=== PATIENT | male | born 1940 | race African-American/Black ===

== ENCOUNTER 2020-03-24 11:30 | Inpatient (IN) | payer MEDICARE, MEDICAID ==
[~2020-03-24] VITALS: Ht 175.3 cm; Wt 67.1 kg
--- NOTE | 2020-03-24 11:38 | NUR ---
ED Nurse Note: PT brought in by ambulance from [facility] for fracture to left hip. x ray is from 03/23/20. per report, pt had a fall some time last week.
--- NOTE | 2020-03-24 12:06 | NUR ---
ED Nurse Note: blood sample collected and sent to lab
[2020-03-24 12:42] LABS: BASOPHILS % (AUTO) 1.5 % (0.0-2.0); EOSINOPHILS % (AUTO) 1.7 % (0.0-3.0); HEMATOCRIT 28.1 % (42.0-52.0); HEMOGLOBIN 9.2 G/DL (14.2-18.0); MEAN CORPUSCULAR VOLUME 82 FL (80-99); MONOCYTES % (AUTO) 13.1 % (1.0-10.0); NEUTROPHILS % (AUTO) 59.7 % (45.0-75.0); PLATELET COUNT 305 K/UL (150-450); RED BLOOD COUNT 3.43 M/UL (4.70-6.10); RED CELL DISTRIBUTION WIDTH 14.1 % (11.6-14.8); WHITE BLOOD COUNT 7.2 K/UL (4.8-10.8)
--- NOTE | 2020-03-24 12:45 | NUR ---
ED Nurse Note: pt taken radiology via gurney accompanied by chemistry technical officer.
--- NOTE | 2020-03-24 12:58 | NUR ---
ED Nurse Note: pt back from x ray
[2020-03-24 13:06] LABS: CALCIUM 8.4 MG/DL (8.5-10.1); CREATININE 1.7 MG/DL (0.55-1.30); POTASSIUM 4.3 MMOL/L (3.5-5.1)
[2020-03-24 13:10] LABS: ALBUMIN 2.4 G/DL (3.4-5.0); ALBUMIN/GLOBULIN RATIO 0.5 (1.0-2.7); BILIRUBIN,TOTAL 0.5 MG/DL (0.2-1.0)
--- NOTE | 2020-03-24 13:56 | Emergency Room Report ---
History of Present Illness General Chief Complaint: Lower Extremity Injury Source: Medical Record, EMS [facility] Present Illness HPI This patient is brought in by EMS from a [facility] facility. The patient had a fall last week and has had pain in his left hip. He underwent an x-ray at the [facility] facility and there are findings concerning for left hip fracture. Patient has severe dementia and is unable to give any type of history. History is obtained from EMS and the patient's medical record. No other history of present illness available. [facility] Allergies: Coded Allergies: No Known Allergies (Unverified , 03/24/20) COVID-19 Screening Contact w/high risk pt: Yes Experienced COVID-19 symptoms?: No COVID-19 Testing performed PRICING SPECIALIST: Yes COVID-19 Screening: Negative COVID-19 COVID-19 Testing Source: 03/10/20 [facility] Patient History Past Medical History: see triage record, old chart reviewed, HTN, psych hx - schizophrenia, renal disease, other - Parkinson's, Chron's Social History: Denies: smoking, alcohol use, drug use Reviewed Nursing Documentation: PMH: Agreed; PSxH: Agreed ([facility]) Nursing Documentation-PMH Hx Hypertension: Yes Hx Gastrointestinal Problems: Yes - BPH, gastritits, Crohn's History Of Psychiatric Problem: Yes - anxiety, schizophrenia ([facility]) Review of Systems All Other Systems: negative except mentioned in HPI ([facility]) Physical Exam Vital Signs Date Time Temp Pulse Resp B/P (MAP) Pulse Ox O2 Delivery O2 Flow Rate FiO2 03/24/20 11:31 98.4 56 18 108/66 (80) 98 Room Air Sp02 EP Interpretation: reviewed, normal General Appearance: no apparent distress, alert, GCS 15, non-toxic Head: normocephalic, atraumatic Eyes: bilateral eye normal inspection ENT: hearing grossly normal, no angioedema, normal voice Neck: normal inspection, full range of motion Respiratory: chest non-tender, lungs clear, normal breath sounds, no respiratory distress, no retraction, no accessory muscle use, speaking full sentences Cardiovascular #1: regular rate, rhythm, no edema Gastrointestinal: non tender, soft, non-distended, no guarding, no rebound Rectal: deferred Musculoskeletal: back normal, normal range of motion, tender - L. hip +pain w/ ROM Neurologic: alert, responsive, speech normal, grossly normal, other - limited secondary to ability to perform exam Psychiatric: mood/affect normal Skin: no rash, normal color, other - See RN skin exam (Arlene Simpson DO) Medical Decision Making Diagnostic Impression: Primary Impression: Hip fracture, left Additional Impression: Fall ER Course This patient is found to have a left hip fracture. It appears nondisplaced. Preop labs, EKG and chest x-ray was obtained in anticipation of surgical repair. Patient remained stable in the emergency department was admitted to the medical surgical floor for further evaluation and treatment by internal medicine and orthopedic surgery. This patient was evaluated in the context of the global COVID-19 pandemic, which necessitated consideration that the patient might be at risk for infection with the [id number]-5 virus that causes COVID-19. Institutional protocols and algorithms that pertain to the evaluation of patients at risk for COVID-19 and the state of rapid change based on information released by multiple regulatory bodies including the CDC and federal and state organizations. These policies and algorithms were followed during the patient's care in the ED. Laboratory Tests Test 03/24/20 12:05 White Blood Count 7.2 K/UL (4.8-10.8) Red Blood Count 3.43 M/UL (4.70-6.10) L Hemoglobin 9.2 G/DL (14.2-18.0) L Hematocrit 28.1 % (42.0-52.0) L Mean Corpuscular Volume 82 FL (80-99) Mean Corpuscular Hemoglobin 26.8 PG (27.0-31.0) L Mean Corpuscular Hemoglobin Concent 32.8 G/DL (32.0-36.0) Red Cell Distribution Width 14.1 % (11.6-14.8) Platelet Count 305 K/UL (150-450) Mean Platelet Volume 6.9 FL (6.5-10.1) Neutrophils (%) (Auto) 59.7 % (45.0-75.0) Lymphocytes (%) (Auto) 24.0 % (20.0-45.0) Monocytes (%) (Auto) 13.1 % (1.0-10.0) H Eosinophils (%) (Auto) 1.7 % (0.0-3.0) Basophils (%) (Auto) 1.5 % (0.0-2.0) Prothrombin Time 11.5 SEC (9.30-11.50) Prothrombin Time INR 1.0 (0.9-1.1) Activated Partial Thromboplast Time 29 SEC (23-33) Sodium Level 137 MMOL/L (136-145) Potassium Level 4.3 MMOL/L (3.5-5.1) Chloride Level 104 MMOL/L (98-107) Carbon Dioxide Level 20 MMOL/L (21-32) L Anion Gap 13 mmol/L (5-15) Blood Urea Nitrogen 38 mg/dL (7-18) H Creatinine 1.7 MG/DL (0.55-1.30) H Estimated Glomerular Filtration Rate 39.0 mL/min (>60) Glucose Level 100 MG/DL (74-106) Calcium Level 8.4 MG/DL (8.5-10.1) L Total Bilirubin 0.5 MG/DL (0.2-1.0) Aspartate Amino Transferase (AST) 23 U/L (15-37) Alanine Aminotransferase (ALT) 7 U/L (12-78) L Alkaline Phosphatase 59 U/L (46-116) Total Protein 7.1 G/DL (6.4-8.2) Albumin 2.4 G/DL (3.4-5.0) L Globulin 4.7 g/dL Albumin/Globulin Ratio 0.5 (1.0-2.7) L (Arlene Simpson DO) ER Course Patient was endorsed me by Dr. Dejesus had injury to the hip and recent fracture. See Dr. Dejesus's note for full details. X-ray imaging showed left h ip fracture. Patient had been admitted to Dr. Dugan. Dr. Yoan Cueto was contacted for orthopedic consult after discussion with Dr. Dugan. Laboratory Tests Test 03/24/20 12:05 03/25/20 04:45 White Blood Count 7.2 K/UL (4.8-10.8) Red Blood Count 3.43 M/UL (4.70-6.10) L Hemoglobin 9.2 G/DL (14.2-18.0) L Hematocrit 28.1 % (42.0-52.0) L Mean Corpuscular Volume 82 FL (80-99) Mean Corpuscular Hemoglobin 26.8 PG (27.0-31.0) L Mean Corpuscular Hemoglobin Concent 32.8 G/DL (32.0-36.0) Red Cell Distribution Width 14.1 % (11.6-14.8) Platelet Count 305 K/UL (150-450) Mean Platelet Volume 6.9 FL (6.5-10.1) Neutrophils (%) (Auto) 59.7 % (45.0-75.0) Lymphocytes (%) (Auto) 24.0 % (20.0-45.0) Monocytes (%) (Auto) 13.1 % (1.0-10.0) H Eosinophils (%) (Auto) 1.7 % (0.0-3.0) Basophils (%) (Auto) 1.5 % (0.0-2.0) Prothrombin Time 11.5 SEC (9.30-11.50) Prothrombin Time INR 1.0 (0.9-1.1) Activated Partial Thromboplast Time 29 SEC (23-33) Sodium Level 137 MMOL/L (136-145) Potassium Level 4.3 MMOL/L (3.5-5.1) Chloride Level 104 MMOL/L (98-107) Carbon Dioxide Level 20 MMOL/L (21-32) L Anion Gap 13 mmol/L (5-15) Blood Urea Nitrogen 38 mg/dL (7-18) H Creatinine 1.7 MG/DL (0.55-1.30) H Estimated Glomerular Filtration Rate 39.0 mL/min (>60) Glucose Level 100 MG/DL (74-106) Calcium Level 8.4 MG/DL (8.5-10.1) L Total Bilirubin 0.5 MG/DL (0.2-1.0) Aspartate Amino Transferase (AST) 23 U/L (15-37) Alanine Aminotransferase (ALT) 7 U/L (12-78) L Alkaline Phosphatase 59 U/L (46-116) Total Protein 7.1 G/DL (6.4-8.2) Albumin 2.4 G/DL (3.4-5.0) L Globulin 4.7 g/dL Albumin/Globulin Ratio 0.5 (1.0-2.7) L Troponin I 0.000 ng/mL (0.000-0.056) Microbiology Date/Time Source Procedure Growth Status 03/24/20 14:27 Nasopharynx SARS-CoV-2 RdRp Gene Assay - Final Complete (Tiago Goldman MD) EKG Diagnostic Results Rate: normal Rhythm: NSR ST Segments: no acute changes ([facility]) Rhythm Strip Diag. Results EP Interpretation: yes Rate: 90's Rhythm: NSR, no PVC's, other - PACs ([facility]) Chest X-Ray Diagnostic Results Chest X-Ray Diagnostic Results : Chest X-Ray Ordered: Yes # of Views/Limited/Complete: 1 View Indication: Other - pre-op EP Interpretation: Yes Interpretation: no consolidation, no effusion, no pneumothorax, no acute cardiopulmonary disease Impression: No acute disease Electronically Signed by: Arlene Simpson DO ([facility]) Other X-Ray Diagnostic Results Other X-Ray Diagnostic Results : X-Ray ordered: L. hip xray/pelvis # of Views/Limited Vs Complete: Complete Indication: Pain EP Interpretation: Yes Interpretation: other - Non-displaced L. surgical neck frx. Impression: Other - L. hip fx Electronically Signed by: Arlene Simpson DO ([facility]) Last Vital Signs Date Time Temp Pulse Resp B/P (MAP) Pulse Ox O2 Delivery O2 Flow Rate FiO2 03/24/20 11:31 98.4 56 18 108/66 (80) 98 [facility] Status: improved (Tiago Goldman MD) Disposition: ADMITTED INPATIENT Condition: Serious Referrals: [facility] 13[facility]56 Tiago Goldman MD Mar 25, 2020 15:13
[2020-03-24 14:11] VITALS: BP 112/70
[2020-03-24] MEDS ORDERED: SINEMET 25-1001 EAC1 ORAL (14:11)
[2020-03-24] MEDS ORDERED: ZOFRAN4 M3 ORAL (14:11)
[2020-03-24] MEDS ORDERED: KEPPRA500 M4 ORAL (14:11)
[2020-03-24] MEDS ORDERED: FAMOTIDINE20 MG ORAL (14:11)
[2020-03-24] MEDS ORDERED: BENZTROPINE MESY1 MG ORAL (14:11)
[2020-03-24] MEDS ORDERED: ACETAMINOPHEN325 M1 ORAL (14:11)
[2020-03-24] MEDS ORDERED: FLOMAX0.4 MG ORAL (14:11)
--- NOTE | 2020-03-24 14:11 | NUR ---
ED Nurse Note: pt seen in bed resting, no acute distress is noted. VSS as documented.
--- NOTE | 2020-03-24 14:23 | Diagnostic Imaging Report ---
Indication: Pain, status post fall Technique: 2 views of the left hip, one view of the pelvis Comparison: none Findings: There is a nondisplaced fracture of the femoral neck. No other fractures are demonstrated. The joint spaces are preserved. Impression: Positive for nondisplaced left femoral neck fracture
--- NOTE | 2020-03-24 15:09 | NUR ---
ED Nurse Note: report given to jey sage from [facility] 3rd floor
--- NOTE | 2020-03-24 15:14 | NUR ---
NURSE NOTES: Received report from FREIDA Lopez Nurse , will wait for pt to be brought to the floor
--- NOTE | 2020-03-24 15:39 | NUR ---
ED Nurse Note: pt brought up to room 302 accompanied by single wire saw operator via gurney in stable condition. IV site to left hand is intact. pt has no belongings.
--- NOTE | 2020-03-24 15:53 | History and Physical ---
History of Present Illness General Date patient seen: Mar 24, 2020 Reason for Hospitalization: Lower Extremity Injury Present Illness HPI 79 years old aam c/o fall sustainted injury ,unable to walk. pt x xray og hip reaveled fracure of hip. pt awake but confused. no acute distress. Allergies: Coded Allergies: No Known Allergies (Unverified , 03/24/20) COVID-19 Screening Contact w/high risk pt: Yes Recent Travel to affected area: No Experienced COVID-19 symptoms?: No Medication History Scheduled Benztropine Mesylate* (Benztropine Mesylate*), 1 MG ORAL BID, (Reported) Carbidopa/Levodopa 25-100 Mg* (Sinemet 25-100 Mg Tablet*), 1 TAB ORAL THREE TIMES A DAY, (Reported) Famotidine* (Pepcid 20mg tablet*), 20 MG ORAL TWICE A DAY, (Reported) Levetiracetam (Keppra), 500 MG ORAL EVERY 12 HOURS, (Reported) Tamsulosin HCl (Flomax), 0.4 MG ORAL DAILY, (Reported) Scheduled PRN Acetaminophen* (Acetaminophen 325MG Tablet*), 650 MG ORAL Q4H PRN for For Pain, (Reported) Ondansetron* (Zofran*), 4 MG ORAL EVERY 8 HOURS PRN for Nausea & Vomiting, (Reported) Patient History Healthcare decision maker Resuscitation status Advanced Directive on File Review of Systems Psychiatric: Reports: prior hx, hallucinations Physical Exam General Appearance: alert HEENT: atraumatic Neck: supple Respiratory/Chest: lungs clear Cardiovascular/Chest: regular rhythm Abdomen: non tender, soft Extremities: other - lt hip tenderness, unable to move Skin Exam: warm/dry Neurologic: alert Last 24 Hour Vital Signs Date Time Temp Pulse Resp B/P (MAP) Pulse Ox O2 Delivery O2 Flow Rate FiO2 03/24/20 15:39 98.0 80 16 112/70 97 Room Air 03/24/20 14:11 98.0 89 16 112/70 97 Room Air 03/24/20 11:31 98.4 56 18 108/66 (80) 98 Room Air Laboratory Tests Test 03/24/20 12:05 White Blood Count 7.2 K/UL (4.8-10.8) Red Blood Count 3.43 M/UL (4.70-6.10) L Hemoglobin 9.2 G/DL (14.2-18.0) L Hematocrit 28.1 % (42.0-52.0) L Mean Corpuscular Volume 82 FL (80-99) Mean Corpuscular Hemoglobin 26.8 PG (27.0-31.0) L Mean Corpuscular Hemoglobin Concent 32.8 G/DL (32.0-36.0) Red Cell Distribution Width 14.1 % (11.6-14.8) Platelet Count 305 K/UL (150-450) Mean Platelet Volume 6.9 FL (6.5-10.1) Neutrophils (%) (Auto) 59.7 % (45.0-75.0) Lymphocytes (%) (Auto) 24.0 % (20.0-45.0) Monocytes (%) (Auto) 13.1 % (1.0-10.0) H Eosinophils (%) (Auto) 1.7 % (0.0-3.0) Basophils (%) (Auto) 1.5 % (0.0-2.0) Prothrombin Time 11.5 SEC (9.30-11.50) Prothromb Time International Ratio 1.0 (0.9-1.1) Activated Partial Thromboplast Time 29 SEC (23-33) Sodium Level 137 MMOL/L (136-145) Potassium Level 4.3 MMOL/L (3.5-5.1) Chloride Level 104 MMOL/L (98-107) Carbon Dioxide Level 20 MMOL/L (21-32) L Anion Gap 13 mmol/L (5-15) Blood Urea Nitrogen 38 mg/dL (7-18) H Creatinine 1.7 MG/DL (0.55-1.30) H Estimat Glomerular Filtration Rate 39.0 mL/min (>60) Glucose Level 100 MG/DL (74-106) Calcium Level 8.4 MG/DL (8.5-10.1) L Total Bilirubin 0.5 MG/DL (0.2-1.0) Aspartate Amino Transf (AST/SGOT) 23 U/L (15-37) Alanine Aminotransferase (ALT/SGPT) 7 U/L (12-78) L Alkaline Phosphatase 59 U/L (46-116) Total Protein 7.1 G/DL (6.4-8.2) Albumin 2.4 G/DL (3.4-5.0) L Globulin 4.7 g/dL Albumin/Globulin Ratio 0.5 (1.0-2.7) L Microbiology Date/Time Source Procedure Growth Status 03/24/20 14:27 Nasopharynx SARS-CoV-2 RdRp Gene Assay - Final Complete Height (Feet): 5 Height (Inches): 9.00 Weight (Pounds): 140 Assessment/Plan Diagnosis [place] I: 1 fracure of hip 2 htn 3 depression 4 dementia cardiac clearence ortho eval dw charge nurse dvt Tom Phillip MD Mar 24, 2020 15:53
--- NOTE | 2020-03-24 15:55 | NUR ---
NURSE NOTES: pt arrived to the unit via gurney, pt awake and verbal but unable to understand pt. 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 pt has LT had 20G locked intact . Bed in low locked position, side rails upx2, bed alarm tuned on , call light with in reach , will call for admission orders
--- NOTE | 2020-03-24 16:40 | Diagnostic Imaging Report ---
Indication: Shortness of breath Technique: One view of the chest Comparison: none Findings: No acute infiltrates, effusions, or congestion. Tortuous calcified aorta. Normal heart size. Upper mediastinum unremarkable. Impression: No acute process.
[2020-03-24] MEDS ORDERED: LORazepam Inj 2mg/ml 1ml IV PRN (17:15)
[2020-03-24] MEDS ORDERED: HYDROcodone/Acetamin 5/325 tab ORAL PRN (17:15)
[2020-03-24] MEDS: Levodopa/Carbidopa 25/100 tab ORAL SCH (18:31)
--- NOTE | 2020-03-24 19:22 | Cardiac Electrophysiology PN ---
Subjective Subjective Seen and examined and dw RN Echo ordered [id number] Objective Last 24 Hour Vital Signs Date Time Temp Pulse Resp B/P (MAP) Pulse Ox O2 Delivery O2 Flow Rate FiO2 03/24/20 18:32 Room Air 03/24/20 15:39 98.0 80 16 112/70 97 Room Air 03/24/20 14:11 98.0 89 16 112/70 97 Room Air 03/24/20 11:31 98.4 56 18 108/66 (80) 98 Room Air Laboratory Tests Test 03/24/20 12:05 White Blood Count 7.2 K/UL (4.8-10.8) Red Blood Count 3.43 M/UL (4.70-6.10) L Hemoglobin 9.2 G/DL (14.2-18.0) L Hematocrit 28.1 % (42.0-52.0) L Mean Corpuscular Volume 82 FL (80-99) Mean Corpuscular Hemoglobin 26.8 PG (27.0-31.0) L Mean Corpuscular Hemoglobin Concent 32.8 G/DL (32.0-36.0) Red Cell Distribution Width 14.1 % (11.6-14.8) Platelet Count 305 K/UL (150-450) Mean Platelet Volume 6.9 FL (6.5-10.1) Neutrophils (%) (Auto) 59.7 % (45.0-75.0) Lymphocytes (%) (Auto) 24.0 % (20.0-45.0) Monocytes (%) (Auto) 13.1 % (1.0-10.0) H Eosinophils (%) (Auto) 1.7 % (0.0-3.0) Basophils (%) (Auto) 1.5 % (0.0-2.0) Prothrombin Time 11.5 SEC (9.30-11.50) Prothromb Time International Ratio 1.0 (0.9-1.1) Activated Partial Thromboplast Time 29 SEC (23-33) Sodium Level 137 MMOL/L (136-145) Potassium Level 4.3 MMOL/L (3.5-5.1) Chloride Level 104 MMOL/L (98-107) Carbon Dioxide Level 20 MMOL/L (21-32) L Anion Gap 13 mmol/L (5-15) Blood Urea Nitrogen 38 mg/dL (7-18) H Creatinine 1.7 MG/DL (0.55-1.30) H Estimat Glomerular Filtration Rate 39.0 mL/min (>60) Glucose Level 100 MG/DL (74-106) Calcium Level 8.4 MG/DL (8.5-10.1) L Total Bilirubin 0.5 MG/DL (0.2-1.0) Aspartate Amino Transf (AST/SGOT) 23 U/L (15-37) Alanine Aminotransferase (ALT/SGPT) 7 U/L (12-78) L Alkaline Phosphatase 59 U/L (46-116) Total Protein 7.1 G/DL (6.4-8.2) Albumin 2.4 G/DL (3.4-5.0) L Globulin 4.7 g/dL Albumin/Globulin Ratio 0.5 (1.0-2.7) L Microbiology Date/Time Source Procedure Growth Status 03/24/20 14:50 Rectum Received 03/24/20 14:27 Nasopharynx SARS-CoV-2 RdRp Gene Assay - Final Complete Aris Ohara MD Mar 24, 2020 19:22
--- NOTE | 2020-03-24 19:55 | NUR ---
NURSE HAND-OFF: Important Events on Shift: New admit Patient Status: stable Diet: mech soft Pending Orders: Pending Results/Labs: Pending MD notification: Latest Vital Signs: Temperature 98.0 , Pulse 80 , B/P 112 /70 , Respiratory Rate 16 , O2 SAT 97 , Room Air, O2 Flow Rate . Vital Sign Comment: Latest Cam Fall Score: 80 Fall Risk: High Risk Safety Measures: Call light Within Reach, Bed Alarm Zone 2, Side Rails Side Rails x2, Bed position Low and Locked. Fall Precautions: Report given to Tena CHANG.
[2020-03-24 20:00] VITALS: BP 145/76
--- NOTE | 2020-03-24 20:08 | NUR ---
NURSES NOTE: New admission. Pt in bed, unable to communicate efficiently. Unable to answer simple questions. No outward s/s of distress. Breathing is even and unlabored on RA. L hand IV in place, infusing IVF fluids without incident. All due medications will be administered. Bed at lowest level. Pt will continue to be monitored.
--- NOTE | 2020-03-24 20:15 | Consultation ---
DATE OF CONSULTATION: 03/24/2020 CARDIOLOGY CONSULTATION CONSULTING PHYSICIAN: Aris Ohara MD REFERRING PHYSICIAN: Tom Dugan MD REASON FOR CONSULTATION: Management of hypertension and preoperative clearance. HISTORY OF PRESENT ILLNESS: Patient is an 79-year-old gentleman with history of hypertension who was brought to the emergency room from long term facility with a left hip fracture that was seen on x-ray done at the long term [facility] on 03/23/2020. At the time of my evaluation, patient was just admitted to telemetry floor, but was unable to provide any meaningful information. All the information was obtained by review of the records. REVIEW OF SYSTEMS: Cannot be obtained. PAST MEDICAL HISTORY: 1. Hypertension. 2. History of gastritis and Crohn disease. 3. History of kidney failure. 4. Parkinson's. 5. Anxiety. 6. Schizophrenia. FAMILY HISTORY: Noncontributory. SOCIAL HISTORY: He is a halfway resident. Does not drink alcohol or use drugs. PHYSICAL EXAMINATION: VITAL SIGNS: Show blood pressure of 112/70, pulse is 80, respirations 18, and he is afebrile. HEAD AND NECK: Showed no JVD. LUNGS: Clear. CARDIOVASCULAR: Shows regular S1 and S2 with no gallop or murmur. ABDOMEN: Soft. EXTREMITIES: No pitting edema. Tenderness in the left hip. LABORATORY AND DIAGNOSTIC DATA: Labs show white count of 7.2, hemoglobin 9.2, hematocrit 28.1, and platelet count is 305. Sodium 137, potassium 4.3, BUN of 38, creatinine 1.7, and glucose of 100. ASSESSMENT AND PLAN: 1. Hypertension. Add p.r.n. clonidine to his medical regimen and use low-dose beta zoie preop in view of the patient's surgery. 2. Status post fall and left hip fracture. The hip x-ray showed nondisplaced left femoral neck fracture. We will get an EKG and echocardiogram and evaluation prior to proceeding with surgery. It is of note that patient's chest x-ray showed no acute process. 3. Benign prostatic hypertrophy, on Flomax. 4. History of seizures, on Keppra. 5. Parkinson's, on Cogentin and Sinemet. Thank you very much, Dr. Dugan, for allowing me to participate in the care of this patient. Please do not hesitate to contact me for any questions regarding my evaluation. Aris Ohara M.D. DR: FRANCO JOB#: [id number] CC:
[2020-03-24] MEDS: Benztropine 1mg tab ORAL SCH (21:10)
[2020-03-24] MEDS: Heparin 5000 units/ml inj SUBQ SCH (21:11)
--- NOTE | 2020-03-24 23:00 | NUR ---
NURSES NOTE: Padded side rails and set up suction.
[2020-03-25] VITALS: BP 112/68
[2020-03-25 04:00] VITALS: BP 103/55
[2020-03-25] MEDS: Heparin 5000 units/ml inj SUBQ SCH ×3 (05:59→21:06)
--- NOTE | 2020-03-25 06:55 | NUR ---
NURSE HAND-OFF: Important Events on Shift:[NONE] Patient Status: [STABLE] Diet: [MECHANICAL SOFT] Pending Orders: [EKG, 2D ECHO] Pending Results/Labs:[NONE] Pending MD notification:[NONE] Latest Vital Signs: Temperature 98.5 , Pulse 74 , B/P 103 /55 , Respiratory Rate 19 , O2 SAT 92 , Room Air, O2 Flow Rate . Vital Sign Comment: [WNL] Latest Cam Fall Score: 80 Fall Risk: High Risk Safety Measures: Call light Within Reach, Bed Alarm Zone 1, Side Rails Side Rails x2, Bed position Low and Locked. Fall Precautions: Yellow Socks Yellow Gown Door Sign Report given to [].
--- NOTE | 2020-03-25 07:31 | NUR ---
HAND OFF: Report given toConnie RN.
--- NOTE | 2020-03-25 07:42 | NUR ---
NURSE NOTES: Received report from BERNARDO Madsen. Pt awake in bed on RA, A&Ox1, confused, verbal but unable to communicate. Breathing even and unlabored. No non verbal s/s pain at this time. No skin break down noted. IV intact and patent infusing IVF as ordered. Pt at Seizure precaution, padded side rails upx3. Bed in low position and locked. Alarm on. Call light within reach. Will continue to monitor.
[2020-03-25 08:00] VITALS: BP 113/71
--- NOTE | 2020-03-25 09:25 | General Progress Note ---
Subjective Date patient seen: Mar 25, 2020 Allergies: Coded Allergies: No Known Allergies (Unverified , 03/24/20) Subjective more awake pain is controlled Objective Last 24 Hour Vital Signs Date Time Temp Pulse Resp B/P (MAP) Pulse Ox O2 Delivery O2 Flow Rate FiO2 03/25/20 08:00 98.0 97 19 113/71 (85) 97 03/25/20 04:00 98.5 74 19 103/55 (71) 92 03/25/20 00:00 98.0 68 17 112/68 (83) 97 03/24/20 21:10 100 145/76 03/24/20 21:00 Room Air 03/24/20 20:00 99.2 100 18 145/76 (99) 98 03/24/20 18:32 Room Air 03/24/20 15:39 98.0 80 16 112/70 97 Room Air 03/24/20 14:11 98.0 89 16 112/70 97 Room Air 03/24/20 11:31 98.4 56 18 108/66 (80) 98 Room Air Intake and Output 03/24/20 03/25/20 19:00 07:00 Intake Total 0 ml Balance 0 ml Intake Oral 0 ml Laboratory Tests 03/24/20 12:05: White Blood Count 7.2, Red Blood Count 3.43L, Hemoglobin 9.2L, Hematocrit 28.1L, Mean Corpuscular Volume 82, Mean Corpuscular Hemoglobin 26.8L, Mean Corpuscular Hemoglobin Concent 32.8, Red Cell Distribution Width 14.1, Platelet Count 305, Mean Platelet Volume 6.9, Neutrophils (%) (Auto) 59.7, Lymphocytes (%) (Auto) 24.0, Monocytes (%) (Auto) 13.1H, Eosinophils (%) (Auto) 1.7, Basophils (%) (Auto) 1.5, Prothrombin Time 11.5, Prothromb Time International Ratio 1.0, Activated Partial Thromboplast Time 29, Sodium Level 137, Potassium Level 4.3, Chloride Level 104, Carbon Dioxide Level 20L, Anion Gap 13, Blood Urea Nitrogen 38H, Creatinine 1.7H, Estimat Glomerular Filtration Rate 39.0, Glucose Level 100, Calcium Level 8.4L, Total Bilirubin 0.5, Aspartate Amino Transf (AST/SGOT) 23, Alanine Aminotransferase (ALT/SGPT) 7L, Alkaline Phosphatase 59, Total Protein 7.1, Albumin 2.4L, Globulin 4.7, Albumin/Globulin Ratio 0.5L 03/25/20 04:45: Troponin I 0.000 Height (Feet): 5 Height (Inches): 9.00 Weight (Pounds): 140 General Appearance: alert EENT: PERRL/EOMI Neck: supple Cardiovascular: regular rhythm Respiratory/Chest: lungs clear Abdomen: soft Skin: warm/dry Assessment/Plan Status: doing well Assessment/Plan: 1 fracure lt hip 2 htn 3 dementia 4 depression cardiac clearence kovacs in progress for hip surgery ortho and cardiology on case Tom Dugan MD Mar 25, 2020 09:25
[2020-03-25] MEDS: Levodopa/Carbidopa 25/100 tab ORAL SCH ×3 (09:52→17:39)
[2020-03-25] MEDS: Benztropine 1mg tab ORAL SCH ×2 (09:52→17:39)
[2020-03-25] MEDS: Tamsulosin 0.4mg cap ORAL SCH (09:53)
--- NOTE | 2020-03-25 10:10 | Cardiac Electrophysiology PN ---
Assessment/Plan Assessment/Plan 1. Hypertension. On Lopressor 25 bid. 2. Status post fall and left hip fracture. The hip x-ray showed nondisplaced left femoral neck fracture. EKG nonischemic and echocardiogram is pending prior to proceeding with surgery. It is of note that patient's chest x-ray showed no acute process. 3. Benign prostatic hypertrophy, on Flomax. 4. History of seizures, on Keppra. 5. Parkinson's, on Cogentin and Sinemet. Subjective Subjective ECG showed SR with PACs Objective Last 24 Hour Vital Signs Date Time Temp Pulse Resp B/P (MAP) Pulse Ox O2 Delivery O2 Flow Rate FiO2 03/25/20 09:52 97 113/71 03/25/20 08:00 98.0 97 19 113/71 (85) 97 03/25/20 04:00 98.5 74 19 103/55 (71) 92 03/25/20 00:00 98.0 68 17 112/68 (83) 97 03/24/20 21:10 100 145/76 03/24/20 21:00 Room Air 03/24/20 20:00 99.2 100 18 145/76 (99) 98 03/24/20 18:32 Room Air 03/24/20 15:39 98.0 80 16 112/70 97 Room Air 03/24/20 14:11 98.0 89 16 112/70 97 Room Air 03/24/20 11:31 98.4 56 18 108/66 (80) 98 Room Air Intake and Output 03/24/20 03/25/20 19:00 07:00 Intake Total 0 ml Balance 0 ml Intake Oral 0 ml Laboratory Tests Test 03/24/20 12:05 03/25/20 04:45 White Blood Count 7.2 K/UL (4.8-10.8) Red Blood Count 3.43 M/UL (4.70-6.10) L Hemoglobin 9.2 G/DL (14.2-18.0) L Hematocrit 28.1 % (42.0-52.0) L Mean Corpuscular Volume 82 FL (80-99) Mean Corpuscular Hemoglobin 26.8 PG (27.0-31.0) L Mean Corpuscular Hemoglobin Concent 32.8 G/DL (32.0-36.0) Red Cell Distribution Width 14.1 % (11.6-14.8) Platelet Count 305 K/UL (150-450) Mean Platelet Volume 6.9 FL (6.5-10.1) Neutrophils (%) (Auto) 59.7 % (45.0-75.0) Lymphocytes (%) (Auto) 24.0 % (20.0-45.0) Monocytes (%) (Auto) 13.1 % (1.0-10.0) H Eosinophils (%) (Auto) 1.7 % (0.0-3.0) Basophils (%) (Auto) 1.5 % (0.0-2.0) Prothrombin Time 11.5 SEC (9.30-11.50) Prothromb Time International Ratio 1.0 (0.9-1.1) Activated Partial Thromboplast Time 29 SEC (23-33) Sodium Level 137 MMOL/L (136-145) Potassium Level 4.3 MMOL/L (3.5-5.1) Chloride Level 104 MMOL/L (98-107) Carbon Dioxide Level 20 MMOL/L (21-32) L Anion Gap 13 mmol/L (5-15) Blood Urea Nitrogen 38 mg/dL (7-18) H Creatinine 1.7 MG/DL (0.55-1.30) H Estimat Glomerular Filtration Rate 39.0 mL/min (>60) Glucose Level 100 MG/DL (74-106) Calcium Level 8.4 MG/DL (8.5-10.1) L Total Bilirubin 0.5 MG/DL (0.2-1.0) Aspartate Amino Transf (AST/SGOT) 23 U/L (15-37) Alanine Aminotransferase (ALT/SGPT) 7 U/L (12-78) L Alkaline Phosphatase 59 U/L (46-116) Total Protein 7.1 G/DL (6.4-8.2) Albumin 2.4 G/DL (3.4-5.0) L Globulin 4.7 g/dL Albumin/Globulin Ratio 0.5 (1.0-2.7) L Troponin I 0.000 ng/mL (0.000-0.056) Microbiology Date/Time Source Procedure Growth Status 03/24/20 14:50 Rectum Received 03/24/20 14:27 Nasopharynx SARS-CoV-2 RdRp Gene Assay - Final Complete Objective HEAD AND NECK: Showed no JVD. LUNGS: Clear. CARDIOVASCULAR: Shows regular S1 and S2 with no gallop or murmur. ABDOMEN: Soft. EXTREMITIES: No pitting edema. Tenderness in the left hip. Aris Ohara MD Mar 25, 2020 10:10
[2020-03-25 11:48] VITALS: BP 109/65
--- NOTE | 2020-03-25 13:51 | NUR ---
CASE MANAGEMENT:INITIAL REVIEW 79 YR OLD MALE BIBA FROM [place] POST ACUTE CC;LOWER EXTREMITY INJURY SI;LEFT HIP FRACTURE. FALL. 98.4 56 18 112/70 97% ON RA H/H 9.2/28.1 BUN 38 C R 1.7 CA 8.4 ALB 2.4 COVID RAPID ~ NEGATIVE HIP XRAY ~ Positive for nondisplaced left femoral neck fracture CXR ~ NO ACUTE PROCESS TYPE & CROSS IS;EKG TRACING ADMITTED TO MED SURG 03/24/20 @ 1459 MED SURG STATUS DCP;FROM [place] [facility] ACUTE PLAN; CARDIAC CLEARANCE WORK UP IN PROGRESS HIP SURGERY
--- NOTE | 2020-03-25 15:11 | Diagnostic Imaging Report ---
Indication: Reason For Exam: FX Technique: Noncontrast spiral acquisitions obtained through the left hip and pelvis Multiplanar reconstructions were generated. Total dose length product 184 mGycm. CTDIvol(s) 4 mGy. Radiation dose was minimized using automated exposure control Comparison: Plain radiograph 03/24/2020 Findings: There is a nondisplaced fracture of the femoral neck. This is slightly angulated. Entire fracture line is not visible, most apparent in the anterior inferior cortex. The remainder of the fracture is manifested by a band of sclerosis indicating impaction of the fracture posteriorly. No other fracture demonstrated. No pelvic fracture demonstrated. Incidentally noted is bilateral L5 spondylolysis. There is minimal grade 1 L5 on S1 spondylolisthesis. There is evidence of a slight left hip contusion. The rectum is mildly distended with stool. The bladder is distended. There are colonic diverticula. Impression: Positive for nondisplaced slightly impacted slightly angulated left femoral neck fracture Minimal overlying soft tissue contusion demonstrated. Possible mild rectal fecal impaction Distended bladder Colonic diverticulosis Bilateral L5 spondylolysis, minimal grade 1 L5 on S1 spondylolisthesis The CT scanner at [facility] is accredited by the [place] [employer] and the scans are performed using protocols designed to limit radiation exposure to as low as reasonably achievable to attain images of sufficient resolution adequate for diagnostic evaluation.
[2020-03-25 16:00] VITALS: BP 98/52
--- NOTE | 2020-03-25 19:22 | NUR ---
NURSE HAND-OFF: Important Events on Shift:[CT hip, 2D echo, EKG done] Patient Status: [stable] Diet: [reg mechanical soft] Pending Orders: [] Pending Results/Labs:[] Pending MD notification:[] Latest Vital Signs: Temperature 98.2 , Pulse 87 , B/P 98 /52 , Respiratory Rate 19 , O2 SAT 98 , Room Air, O2 Flow Rate . Vital Sign Comment: [stable] Latest Cam Fall Score: 80 Fall Risk: High Risk Safety Measures: Call light Within Reach, Bed Alarm Zone 1, Side Rails Side Rails x2, Bed position Low and Locked. Fall Precautions: Yellow Socks Yellow Gown Door Sign Report given to [BERNARDO Aden].
--- NOTE | 2020-03-25 19:30 | NUR ---
NURSE NOTES: Received report & pt from BERNARDO Rosales. Pt in bed, a&ox1, in room air. No s/s of acute distress & no s/s of pain, no facial grimacing. Condom cath noted & secured to leg. IV site intact with IVF running as ordered. On seizure precaution. Bed in lowest position, call light within reach. Will continue to monitor.
[2020-03-25 20:39] VITALS: BP 96/46
--- NOTE | 2020-03-26 01:15 | NUR ---
NURSE NOTES: Seth from Microbiology called. Informed RN that pt is positive MRSA nares. Charge nurse Annika & Dr. Dugan made aware. Form Setter/Driver also made aware by charge nurse.
[2020-03-26 04:37] VITALS: BP 124/67
[2020-03-26] MEDS: Heparin 5000 units/ml inj SUBQ SCH ×3 (05:33→22:43)
--- NOTE | 2020-03-26 06:36 | NUR ---
NURSE HAND-OFF: Important Events on Shift:MRSA nares positive, placed on contact isolation; Utilities Ground Worker & MD aware Patient Status: stable Diet: regular Pending Orders: none Pending Results/Labs:none Pending MD notification:none Latest Vital Signs: Temperature 98.3 , Pulse 95 , B/P 124 /67 , Respiratory Rate 18 , O2 SAT 96 , Room Air, O2 Flow Rate . Vital Sign Comment: none Latest Cam Fall Score: 80 Fall Risk: High Risk Safety Measures: Call light Within Reach, Bed Alarm Zone 1, Side Rails Side Rails x2, Bed position Low and Locked. Fall Precautions: Yellow Socks Yellow Gown Door Sign Report given to . Addendum: 03/26/20 at 0730 by Keiko Stewart RN Report given to BERNARDO Goodrich.
--- NOTE | 2020-03-26 07:30 | NUR ---
NURSE NOTES: Pt lying in bed w/bed in lowest position/locked and call light within reach. Pt A&Ox1, VSS, and in no apparent distress. IV site intact & H/L'd and skin intact. Will continue to monitor.
[2020-03-26 08:00] VITALS: BP 119/67
[2020-03-26] MEDS: Levodopa/Carbidopa 25/100 tab ORAL SCH ×3 (09:08→18:10)
[2020-03-26] MEDS: Benztropine 1mg tab ORAL SCH ×2 (09:08→18:09)
[2020-03-26] MEDS: Tamsulosin 0.4mg cap ORAL SCH (09:08)
--- NOTE | 2020-03-26 09:30 | General Progress Note ---
Subjective Allergies: Coded Allergies: No Known Allergies (Unverified , 03/24/20) Subjective more awake pain is controlled Objective Last 24 Hour Vital Signs Date Time Temp Pulse Resp B/P (MAP) Pulse Ox O2 Delivery O2 Flow Rate FiO2 03/26/20 09:08 101 119/67 03/26/20 08:00 99.2 101 18 119/67 (84) 99 03/26/20 04:37 98.3 95 18 124/67 (86) 96 03/25/20 20:48 Room Air 03/25/20 20:40 90 96/46 03/25/20 20:39 99.0 90 18 96/46 (63) 96 03/25/20 16:00 98.2 87 19 98/52 (67) 98 03/25/20 11:48 98.2 91 19 109/65 (80) 96 03/25/20 09:52 97 113/71 Intake and Output 03/25/20 03/26/20 19:00 07:00 Intake Total 1065 ml Output Total 800 ml 50 ml Balance -800 ml 1015 ml Intake Oral 240 ml IV Total 825 ml Output Urine Total 800 ml 50 ml Height (Feet): 5 Height (Inches): 9.00 Weight (Pounds): 140 General Appearance: alert Neck: supple Cardiovascular: regular rhythm Respiratory/Chest: normal breath sounds Abdomen: non tender, soft Extremities: other - decrease rom bry leg Assessment/Plan Status: doing well Assessment/Plan: 1 fracure lt hip 2 htn 3 dementia 4 depression cardiac clearence kovacs in progress for hip surgery ortho and cardiology on case dw Tom Coleman MD Mar 26, 2020 09:30
[2020-03-26 12:00] VITALS: BP 106/59
--- NOTE | 2020-03-26 12:57 | Anethesia Preoperative Eval ---
Anesthesia Pre-op PMH/ROS General Date of Evaluation: Mar 26, 2020 Time of Evaluation: 13:17 Anesthesiologist: Augustus ASA Score: ASA 4 Mallampati Score Class I : Soft palate, uvula, fauces, pillars visible Class II: Soft palate, uvula, fauces visible Class III: Soft palate, base of uvula visible Class IV: Only hard plate visible Mallampati Classification: Class II Surgeon: Rom Diagnosis: L Hip FX Surgical Procedure: ORIF L Hip Anesthesia History: none Family History: no anesthesia problems Allergies: Coded Allergies: No Known Allergies (Unverified , 03/24/20) Medications: see eMAR Patient NPO?: Yes Past Medical History Cardiovascular: Reports: HTN Gastrointestinal/Genitourinary: Reports: GERD, ESRD, other - BPH, Crohns Disease Neurologic/Psychiatric: Reports: dementia, other - Parkinsons Musculoskeletal/Integumentary: Reports: other - Weakness Anesthesia Pre-op Phys. Exam Physician Exam Last Vital Signs Date Time Temp Pulse Resp B/P (MAP) Pulse Ox O2 Delivery O2 Flow Rate FiO2 03/26/20 09:08 101 119/67 03/26/20 08:00 99.2 18 99 03/25/20 20:48 Room Air Constitutional: NAD Neurologic: CN 2-12 intact Cardiovascular: RRR Respiratory: CTA Gastrointestinal: S/NT/ND Airway Exam Mallampati Score: Class II MO: limited ROM: limited Teeth: missing Anesthesia Pre-op A/P Labs Labs Test 03/24/20 12:05 03/25/20 04:45 White Blood Count 7.2 K/UL (4.8-10.8) Red Blood Count 3.43 M/UL (4.70-6.10) Hemoglobin 9.2 G/DL (14.2-18.0) Hematocrit 28.1 % (42.0-52.0) Mean Corpuscular Volume 82 FL (80-99) Mean Corpuscular Hemoglobin 26.8 PG (27.0-31.0) Mean Corpuscular Hemoglobin Concent 32.8 G/DL (32.0-36.0) Red Cell Distribution Width 14.1 % (11.6-14.8) Platelet Count 305 K/UL (150-450) Mean Platelet Volume 6.9 FL (6.5-10.1) Neutrophils (%) (Auto) 59.7 % (45.0-75.0) Lymphocytes (%) (Auto) 24.0 % (20.0-45.0) Monocytes (%) (Auto) 13.1 % (1.0-10.0) Eosinophils (%) (Auto) 1.7 % (0.0-3.0) Basophils (%) (Auto) 1.5 % (0.0-2.0) Prothrombin Time 11.5 SEC (9.30-11.50) Prothromb Time International Ratio 1.0 (0.9-1.1) Activated Partial Thromboplast Time 29 SEC (23-33) Sodium Level 137 MMOL/L (136-145) Potassium Level 4.3 MMOL/L (3.5-5.1) Chloride Level 104 MMOL/L (98-107) Carbon Dioxide Level 20 MMOL/L (21-32) Anion Gap 13 mmol/L (5-15) Blood Urea Nitrogen 38 mg/dL (7-18) Creatinine 1.7 MG/DL (0.55-1.30) Estimat Glomerular Filtration Rate 39.0 mL/min (>60) Glucose Level 100 MG/DL (74-106) Calcium Level 8.4 MG/DL (8.5-10.1) Total Bilirubin 0.5 MG/DL (0.2-1.0) Aspartate Amino Transf (AST/SGOT) 23 U/L (15-37) Alanine Aminotransferase (ALT/SGPT) 7 U/L (12-78) Alkaline Phosphatase 59 U/L (46-116) Total Protein 7.1 G/DL (6.4-8.2) Albumin 2.4 G/DL (3.4-5.0) Globulin 4.7 g/dL Albumin/Globulin Ratio 0.5 (1.0-2.7) Troponin I 0.000 ng/mL (0.000-0.056) Risk Assessment & Plan Assessment: ASA 4 Plan: GA vs Spinal Status Change Before Surgery: No Pre-Antibiotics Drug: Asael Delcid MD Mar 26, 2020 12:57
--- NOTE | 2020-03-26 14:45 | NUR ---
NURSE NOTES: Swabbed pt for COVID-19 in preparation for surgery tomorrow and took down to lab for processing. Will continue to monitor.
--- NOTE | 2020-03-26 14:58 | Cardiac Electrophysiology PN ---
Assessment/Plan Assessment/Plan 1. Hypertension. On Lopressor 25 bid. 2. Status post fall and left hip fracture. The hip x-ray showed nondisplaced left femoral neck fracture. EKG nonischemic and echocardiogram showed Nl EF. Chest x-ray showed no acute process. Clear for surgery tomorrow at moderate Risk 3. Benign prostatic hypertrophy, on Flomax. 4. History of seizures, on Keppra. 5. Parkinson's, on Cogentin and Sinemet. Subjective Subjective ECG showed SR with PACs. ECho Nl EF. No CP or SOB. Scheduled for surgery tomorrow Objective Last 24 Hour Vital Signs Date Time Temp Pulse Resp B/P (MAP) Pulse Ox O2 Delivery O2 Flow Rate FiO2 03/26/20 12:00 99.0 88 18 106/59 (75) 100 03/26/20 09:08 101 119/67 03/26/20 09:00 Room Air 03/26/20 08:00 99.2 101 18 119/67 (84) 99 03/26/20 04:37 98.3 95 18 124/67 (86) 96 03/25/20 20:48 Room Air 03/25/20 20:40 90 96/46 03/25/20 20:39 99.0 90 18 96/46 (63) 96 03/25/20 16:00 98.2 87 19 98/52 (67) 98 Intake and Output 03/25/20 03/26/20 19:00 07:00 Intake Total 1065 ml Output Total 800 ml 50 ml Balance -800 ml 1015 ml Intake Oral 240 ml IV Total 825 ml Output Urine Total 800 ml 50 ml Microbiology Date/Time Source Procedure Growth Status 03/24/20 14:50 Rectum VRE Culture - Final Enterococcus Faecalis - Vre Complete 03/24/20 14:50 Rectum - Final NO CARBAPENEM-RESISTANT ENTEROBACTERI... Complete 03/24/20 14:50 Nasal Nares MRSA Culture - Final Staphylococcus Aureus - Mrsa Complete 03/24/20 14:27 Nasopharynx SARS-CoV-2 RdRp Gene Assay - Final Complete Objective HEAD AND NECK: Showed no JVD. LUNGS: Clear. CARDIOVASCULAR: Shows regular S1 and S2 with no gallop or murmur. ABDOMEN: Soft. EXTREMITIES: No pitting edema. Tenderness in the left hip. Aris Ohara MD Mar 26, 2020 14:58
[2020-03-26 16:00] VITALS: BP 87/50
--- NOTE | 2020-03-26 16:30 | NUR ---
NURSE NOTES: Left voicemail for Dr. Cueto regarding pt's inability to consent to surgery d/t being demented & alert to self only. Will await call back. Addendum: 03/26/20 at 1858 by GERARDO SINGH RN Pt has no next of kin
--- NOTE | 2020-03-26 19:32 | NUR ---
NURSE HAND-OFF: Important Events on Shift: Pt scheduled for surgery tomorrow; informed Dr. Cueto that consent was not obtained d/t pt being demented and alert to self only. Patient Status: Stable Diet: Regular, mech-soft, finely chopped Latest Vital Signs: Temperature 98.2 , Pulse 95 , B/P 87 /50 , Respiratory Rate 18 , O2 SAT 97 , Room Air, O2 Flow Rate . Vital Sign Comment: [] Latest Cam Fall Score: 80 Fall Risk: High Risk Safety Measures: Call light Within Reach, Bed Alarm Zone 1, Side Rails Side Rails x2, Bed position Low and Locked. Fall Precautions: Yellow Socks Yellow Gown Door Sign Report given to BERNARDO Adorno.
--- NOTE | 2020-03-26 19:35 | NUR ---
NURSE NOTES: Receive a report from BERNARDO Goodrich. Round is done. Pt is awake without acute distress but has hard of hearing, orientation x1, self. Explain for tomorrow surgery. Denies pain. Yellow urine is drained via condom catheter. On bed alarm. Call light within reach. Will continue to monitor.
[2020-03-26 20:00] VITALS: BP 103/54
[2020-03-26 21:30] VITALS: BP 90/50
[2020-03-27] VITALS (19 sets, daily range): BP systolic 87–132; BP diastolic 50–98
--- NOTE | 2020-03-27 01:30 | NUR ---
NURSE NOTES: IV H/L on right FA got accidently out. Will reestablish one.
--- NOTE | 2020-03-27 03:00 | NUR ---
NURSE NOTES: 22g H/L got established after multiple trials. Explain pt for keeping IV line for further treatment. Will continue to monitor.
--- NOTE | 2020-03-27 05:00 | NUR ---
NURSE NOTES: Reattached condom catheter. Voided in the pad. Skin intact. Remind pt of MNNPO for surgery. Denies pain. Will continue to monitor.
[2020-03-27] MEDS: Heparin 5000 units/ml inj SUBQ SCH ×3 (05:47→20:55)
--- NOTE | 2020-03-27 06:51 | NUR ---
NURSE HAND-OFF: Important Events on Shift: new IV access, MNNPO for surgery Patient Status: stable Diet: MNNPO Pending Orders: [consent forms for surgery and transfusion] Pending Results/Labs:[-] Pending MD notification:[-] Latest Vital Signs: Temperature 98.3 , Pulse 88 , B/P 119 /59 , Respiratory Rate 18 , O2 SAT 99 , Room Air, O2 Flow Rate . Vital Sign Comment: [] Latest Cam Fall Score: 80 Fall Risk: High Risk Safety Measures: Call light Within Reach, Bed Alarm Zone 1, Side Rails Side Rails x3, Bed position Low and Locked. Fall Precautions: Yellow Socks Yellow Gown Door Sign Patient Fall Education
--- NOTE | 2020-03-27 07:30 | NUR ---
NURSE NOTES: Pt lying in bed w/bed in lowest position and call light within reach. Pt alert to self only, VSS, and in no apparent distress. IV site intact/asymptomatic & H/L'd and skin intact. Pt NPO since midnight in preparation for surgery this afternoon. Will continue to monitor.
--- NOTE | 2020-03-27 07:30 | NUR ---
HAND-OFF: Report given to BERNARDO Goodrich.
[2020-03-27] MEDS: Tamsulosin 0.4mg cap ORAL SCH (08:19)
[2020-03-27] MEDS: Benztropine 1mg tab ORAL SCH ×2 (08:19→17:15)
[2020-03-27] MEDS: Levodopa/Carbidopa 25/100 tab ORAL SCH ×3 (08:19→17:16)
[2020-03-27] MEDS ORDERED: SINEMET 25-2501 EACH ORAL (10:02)
[2020-03-27] MEDS ORDERED: TUBERSOL (PPD)0.1 ML IDERMAL (10:09)
[2020-03-27] MEDS ORDERED: LEVETIRACE500 MG/51 PO (10:09)
--- NOTE | 2020-03-27 10:47 | Anethesia Preoperative Eval ---
Anesthesia Pre-op PMH/ROS General Date of Evaluation: Mar 27, 2020 Time of Evaluation: 10:42 Anesthesiologist: Jose A ASA Score: ASA 4 Mallampati Score Class I : Soft palate, uvula, fauces, pillars visible Class II: Soft palate, uvula, fauces visible Class III: Soft palate, base of uvula visible Class IV: Only hard plate visible Mallampati Classification: Class II Surgeon: Rom Diagnosis: L FEMORAL NECK fX Surgical Procedure: L hip pinning Anesthesia History: none Family History: no anesthesia problems Allergies: Coded Allergies: No Known Allergies (Unverified , 03/24/20) Patient NPO?: Yes Past Medical History Cardiovascular: Reports: HTN; Denies: CAD, MD, valve dz, arrhythmia, other Pulmonary: Denies: asthma, COPD, ZEENAT, other Gastrointestinal/Genitourinary: Reports: GERD, CRI - Elevated Cr.; Denies: ESRD, other Neurologic/Psychiatric: Reports: dementia, other - Parkinsons, h/o schizophrenia; Denies: CVA, depression/anxiety, TIA Endocrine: Reports: hypothyroidism; Denies: DM, steroids, other HEENT: Reports: cataract (L), cataract (R); Denies: glaucoma, EWIIAAPAAYP (L), EWIIAAPAAYP (R), other Hematology/Immune: Reports: anemia - of chronic d-s; Denies: DVT, bleeding disorder, other Musculoskeletal/Integumentary: Reports: OA; Denies: RA, DJD, DDD, edema, other Other: other - malnoursed PMH Narrative: as above PSxH Narrative: see H&P Anesthesia Pre-op Phys. Exam Physician Exam Last Vital Signs Date Time Temp Pulse Resp B/P (MAP) Pulse Ox O2 Delivery O2 Flow Rate FiO2 03/27/20 09:00 Room Air 03/27/20 08:18 100 132/98 03/27/20 08:00 98.6 18 98 Constitutional: NAD Neurologic: other - unable to obtaine Cardiovascular: RRR Respiratory: CTA Gastrointestinal: S/NT/ND Airway Exam Mallampati Score: Class II MO: limited Neck: stif ROM: limited Teeth: missing Dentures: no upper, no lower Anesthesia Pre-op A/P Labs see chart Studies Pre-op Studies: EKG - SR Risk Assessment & Plan Assessment: ASA 4 Plan: SAB vs GA Status Change Before Surgery: No Pre-Antibiotics Drug: Acef 1gr Given Within 1 Hr of Incision: Yes Time Given: 12:40 Farrukh Naranjo MD Mar 27, 2020 10:47
--- NOTE | 2020-03-27 10:50 | NUR ---
NURSE NOTES: Pt taken down to OR via hospital bed in stable condition.
--- NOTE | 2020-03-27 12:18 | Cardiac Electrophysiology PN ---
Assessment/Plan Assessment/Plan 1. Hypertension. On Lopressor 25 bid. 2. Status post fall and nondisplaced left femoral neck fracture. EKG nonischemic and echocardiogram showed Nl EF. Chest x-ray showed no acute process. Clear for surgery at moderate Risk 3. Benign prostatic hypertrophy, on Flomax. 4. History of seizures, on Keppra. 5. Parkinson's, on Cogentin and Sinemet. Subjective Subjective ECG showed SR with PACs. ECho Nl EF. No CP or SOB. NPO for surgery today Objective Last 24 Hour Vital Signs Date Time Temp Pulse Resp B/P (MAP) Pulse Ox O2 Delivery O2 Flow Rate FiO2 03/27/20 09:00 Room Air 03/27/20 08:18 100 132/98 03/27/20 08:00 98.6 100 18 132/98 (109) 98 03/27/20 04:00 98.3 88 18 119/59 (79) 99 03/27/20 00:00 98.5 91 18 91/52 (65) 99 03/26/20 21:30 94 90/50 (63) 03/26/20 21:00 94 90/50 03/26/20 21:00 Room Air 03/26/20 20:00 98.5 91 18 103/54 (70) 99 03/26/20 16:00 98.2 95 18 87/50 (62) 97 Intake and Output 03/26/20 03/27/20 19:00 07:00 Output Total 650 ml Balance -650 ml Output Urine Total 650 ml # Voids 3 Microbiology Date/Time Source Procedure Growth Status 03/26/20 14:30 Nasopharynx SARS-CoV-2 RdRp Gene Assay - Final Complete 03/24/20 14:50 Rectum VRE Culture - Final Enterococcus Faecalis - Vre Complete 03/24/20 14:50 Rectum - Final NO CARBAPENEM-RESISTANT ENTEROBACTERI... Complete 03/24/20 14:50 Nasal Nares MRSA Culture - Final Staphylococcus Aureus - Mrsa Complete 03/24/20 14:27 Nasopharynx SARS-CoV-2 RdRp Gene Assay - Final Complete Objective HEAD AND NECK: Showed no JVD. LUNGS: Clear. CARDIOVASCULAR: Shows regular S1 and S2 with no gallop or murmur. ABDOMEN: Soft. EXTREMITIES: No pitting edema. Tenderness in the left hip. Aris Ohara MD Mar 27, 2020 12:18
[2020-03-27] MEDS ORDERED: Bupivacaine 0.5% Inj 30 ml vial INJ ONE (12:35)
[2020-03-27] MEDS ORDERED: Duramorph PF 5mg/10ml amp ONE (12:35)
[2020-03-27] MEDS ORDERED: fentaNYL 100 mcg/2 mL IV ONE (12:36)
[2020-03-27] MEDS ORDERED: NeoSporin Gu Irrig 1ml Amp IRRIG ONE (12:55)
[2020-03-27] MEDS ORDERED: Bacitracin 50000 Units Vial ONE (12:55)
--- NOTE | 2020-03-27 13:23 | Pre-Procedure Note/Attestation ---
Pre-Procedure Note/Attestation Complete Prior to Procedure Planned Procedure: left Procedure Narrative: femoral neck fracture crpp Indications for Procedure Pre-Operative Diagnosis: left femoral neck fracture Attestation I attest that I discussed the nature of the procedure; its benefits; risks and complications; and alternatives (and the risks and benefits of such alternatives), prior to the procedure, with the patient (or the patient's legal account development representative). I attest that, if there was a reasonable possibility of needing a blood transfusion, the patient (or the patient's legal account development representative) was given the [facility] standardized written summary, pursuant to the Julain Deniz Blood Safety Act ([place] Health and Safety Code # 1645, as amended). I attest that I re-evaluated the patient just prior to the surgery and that there has been no change in the patient's H&P, except as documented below: Jose Cueto MD Mar 27, 2020 13:23
--- NOTE | 2020-03-27 13:24 | Operative Note - PDOC ---
Operative Note Operative Note Pre-op Diagnosis: left femoral neck fracture Procedure: see op report Post-op Diagnosis: same as pre-op plus Operative Findings: consistent w/pre-op dx studies Anesthesia: regional Complications: none Condition: stable Estimated Blood Loss: none Implant(s) used?: Yes Jose Cueto MD Mar 27, 2020 13:24
[2020-03-27] MEDS ORDERED: Metoclopramide 10mg/2ml Inj IVP PRN (13:30)
[2020-03-27] MEDS ORDERED: HYDROcodone/Acetamin 7.5/325 tab ORAL PRN (13:30)
[2020-03-27] MEDS ORDERED: HYDROcodone/Acetamin 5/325 tab ORAL PRN (13:30)
[2020-03-27] MEDS ORDERED: Milk of Magnesia 30ml Ud ORAL PRN (13:30)
[2020-03-27] MEDS ORDERED: Bupivacaine 0.25% Inj 30ml INJ ONE (14:00)
--- NOTE | 2020-03-27 14:25 | Immediate Post-Op Evaluation ---
Immediate Post-Op Evalulation Immediate Post-Op Evalulation Procedure: ORIF of L femoral neck Fx Date of Evaluation: Mar 27, 2020 Time of Evaluation: 14:23 IV Fluids: 800 Blood Products: none Estimated Blood Loss: min Urinary Output: 1000 Blood Pressure Systolic: 92 Blood Pressure Diastolic: 56 Pulse Rate: 72 Respiratory Rate: 20 O2 Sat by Pulse Oximetry: 99 Temperature (Fahrenheit): 97.7 Pain Score (1-10): 1 Nausea: No Vomiting: No Complications none Patient Status: awake, patent, none Hydration Status: adequate Farrukh Naranjo MD Mar 27, 2020 14:25
--- NOTE | 2020-03-27 14:34 | NUR ---
CASE MANAGEMENT:REVIEW SI;OPERATIVE DAY ~ ORIF OF LT FEMORAL NECK FRACTURE 98.6 100 20 132/98 98% ON RA ISLCEFAZOLIN IV INF D5W @ 75 ML/HR KEPPRA PO Q12 LOPRESSOR PO Q12 HEPARIN SUBQ Q8 IN SURGERY NOW MED SURG STATUS
--- NOTE | 2020-03-27 15:00 | General Progress Note ---
Subjective Allergies: Coded Allergies: No Known Allergies (Unverified , 03/24/20) Subjective more awake pain is controlled fpr surgery Objective Last 24 Hour Vital Signs Date Time Temp Pulse Resp B/P (MAP) Pulse Ox O2 Delivery O2 Flow Rate FiO2 03/27/20 14:46 58 19 98/52 100 Nasal Cannula 2.0 03/27/20 14:36 62 18 100/58 100 Nasal Cannula 2.0 03/27/20 14:26 63 19 87/53 100 Nasal Cannula 2.0 03/27/20 14:25 72 20 99 03/27/20 14:21 64 20 88/50 100 Nasal Cannula 2.0 03/27/20 14:16 97.0 66 20 91/54 100 Nasal Cannula 2.0 03/27/20 09:00 Room Air 03/27/20 08:18 100 132/98 03/27/20 08:00 98.6 100 18 132/98 (109) 98 03/27/20 04:00 98.3 88 18 119/59 (79) 99 03/27/20 00:00 98.5 91 18 91/52 (65) 99 03/26/20 21:30 94 90/50 (63) 03/26/20 21:00 94 90/50 03/26/20 21:00 Room Air 03/26/20 20:00 98.5 91 18 103/54 (70) 99 03/26/20 16:00 98.2 95 18 87/50 (62) 97 Intake and Output 03/26/20 03/27/20 19:00 07:00 Output Total 650 ml Balance -650 ml Output Urine Total 650 ml # Voids 3 Height (Feet): 5 Height (Inches): 9.00 Weight (Pounds): 147 General Appearance: alert EENT: PERRL/EOMI Neck: supple Cardiovascular: regular rhythm Respiratory/Chest: lungs clear Abdomen: non tender, soft, no organomegaly Extremities: normal inspection Assessment/Plan Status: doing well Assessment/Plan: 1 fracure lt hip for surgery 2 htn 3 dementia 4 depression for hip surgery ortho and cardiology on case dw Tom Coleman MD Mar 27, 2020 15:00
--- NOTE | 2020-03-27 15:30 | NUR ---
HAND-OFF: Report given to BERNARDO Palumbo, on 4E; pt still in recovery.
--- NOTE | 2020-03-27 15:53 | NUR ---
PARAPROFESSIONAL EDUCATION ASSISTANT NOTE This SW received consult for home safety evaluation. Pt is alert and oriented to self only. SW spoke w/ Grant from [facility] business office [phone] that pt has been their resident since June 2018. PT does not have any emergency contact. Per Grant, he has witnessed pt walking w/o DMEs. The facility has 24 hour staff and staff will continue to encourage pt to use DME. Recommending PT evaluation to test mobility and recommend appropriate DME.
--- NOTE | 2020-03-27 16:00 | NUR ---
NURSE NOTES Received patient from recovery s/p left hip pinning dressing clean dry and intact, patient still still sleepy but easily arousable, no sign of distress, no fascial grimace noted, IVF patent and infusing well, champagne cath to gravity, repositioned patient for comfort and good circulation, neuro check done v/s taken and recorded, on fall , isolation precaution observed and maintained kept clean dry and comfortable in bed jey pak
--- NOTE | 2020-03-27 16:18 | Diagnostic Imaging Report ---
INDICATION: Pain, intraoperative TECHNIQUE: Intraoperative imaging Fluoroscopy time: 42.1 seconds Total dose: 0.44588 mGym2 Total number of images: 4 COMPARISON: Hip CT scan dated 03/25/2020 FINDINGS: Intraoperative images document placement of 3 surgical nails for reduction of previously reported left hip fracture. IMPRESSION: Intraoperative imaging, as described
[2020-03-27] MEDS: D5 1/2NS w/KCl 20mEq 1,000 ML IV SCH (16:22)
[2020-03-27] MEDS: Docusate 100mg cap ORAL SCH (17:16)
--- NOTE | 2020-03-27 18:20 | NUR ---
NURSE HAND-OFF: Important Events on Shift:[s/p closed reduction percutaneous pinning left hip today, dressng clean dry and intact ] Patient Status: [improving] Diet: [soft diet ] Pending Orders: [labs in am] Pending Results/Labs:[none] Pending MD notification:[none] Latest Vital Signs: Temperature 97.1 , Pulse 61 , B/P 109 /60 , Respiratory Rate 17 , O2 SAT 99 , Room Air, O2 Flow Rate 2.0 . Vital Sign Comment: [stable] Latest Cam Fall Score: 80 Fall Risk: High Risk Safety Measures: Call light Within Reach, Bed Alarm Zone 1, Side Rails Side Rails x3, Bed position Low and Locked. Fall Precautions: Yellow Socks Yellow Gown Door Sign Patient Fall Education patient high risk for fall champagne cath to be dcd in am Report given to []. Addendum: 03/27/20 at 1937 by DARRION DUNHAM RN RN NURSE HAND-OFF: Important Events on Shift:[s/p closed reduction percutaneous pinning left hip today, dressng clean dry and intact ] Patient Status: [improving] Diet: [soft diet ] Pending Orders: [labs in am] Pending Results/Labs:[none] Pending MD notification:[none] Latest Vital Signs: Temperature 97.1 , Pulse 61 , B/P 109 /60 , Respiratory Rate 17 , O2 SAT 99 , Room Air, O2 Flow Rate 2.0 . Vital Sign Comment: [stable] Latest Cam Fall Score: 80 Fall Risk: High Risk Safety Measures: Call light Within Reach, Bed Alarm Zone 1, Side Rails Side Rails x3, Bed position Low and Locked. Fall Precautions: Yellow Socks Yellow Gown Door Sign Patient Fall Education patient high risk for fall champagne cath to be dcd in am Report given to [BERNARDO GUERRA RN].
--- NOTE | 2020-03-27 19:30 | NUR ---
NURSE NOTES: Received patient in no apparent distress. A&OX1, confused. IV site patent and intact. Dressing noted on left hip, dry and intact. Alex cath draining well by gravity, yellow urine noted. Bed in lowest position. Call light within reach. Will continue to monitor.
--- NOTE | 2020-03-27 20:30 | Consultation ---
DATE OF CONSULTATION: 03/24/2020 ORTHOPEDIC CONSULTATION CONSULTING PHYSICIAN: Jose Cueto MD CHIEF COMPLAINT: Left hip pain. HISTORY OF PRESENT ILLNESS: The patient is a pleasant 79-year-old gentleman who sustained a mechanical fall and diagnosed with a left hip fracture. Orthopedic consultation was obtained for further care and recommendation. PAST MEDICAL HISTORY: Per intake chart. PAST SURGICAL HISTORY: Per intake chart. MEDICATIONS: Per intake chart. PHYSICAL EXAMINATION: GENERAL: The patient is resting comfortably at this time on exam bed. VITAL SIGNS: Afebrile. Stable vital signs. EXTREMITIES: Left hip examination does show pain with internal and external rotation. Posterior calf is soft. IMAGING STUDIES: Showed what appears to be a minimally displaced femoral neck fracture. There is a question whether there is extension into the intertrochanteric area. ASSESSMENT: Left femoral neck fracture. DISCUSSION: At this point, we will get a CT scan and see if he is a candidate for closed reduction versus open reduction and internal fixation. Risks, limitations, and expectations will be discussed with [id number] if we can find him. We will go ahead and get the CT scan and further recommendations going forward. Jose Cueto M.D. DR: SOFIA JOB#: [id number] CC:
--- NOTE | 2020-03-27 20:56 | NUR ---
NURSE NOTES: Heparin was hold due to post day #0.
[2020-03-27] MEDS: ceFAZolin 2gm/50ml Premix 50 ML IV SCH (21:00)
[2020-03-28] VITALS: BP 113/58
[2020-03-28 04:00] VITALS: BP 108/68
[2020-03-28] MEDS: ceFAZolin 2gm/50ml Premix 50 ML IV SCH (04:14)
[2020-03-28] MEDS: D5 1/2NS w/KCl 20mEq 1,000 ML IV SCH ×2 (04:15→17:40)
[2020-03-28] MEDS: Heparin 5000 units/ml inj SUBQ SCH ×3 (06:17→21:14)
--- NOTE | 2020-03-28 07:31 | NUR ---
NURSE HAND-OFF: Important Events on Shift: Patient Status: Diet: soft diet Pending Orders: Pending Results/Labs: Pending MD notification: Latest Vital Signs: Temperature 97.6 , Pulse 90 , B/P 108 /68 , Respiratory Rate 20 , O2 SAT 99 , Room Air, O2 Flow Rate 2.0 . Vital Sign Comment: Latest Cam Fall Score: 80 Fall Risk: High Risk Safety Measures: Call light Within Reach, Bed Alarm Zone 1, Side Rails Side Rails x3, Bed position Low and Locked. Fall Precautions: Yellow Socks Yellow Gown Door Sign Patient Fall Education Report given to Lyric CHANG.
--- NOTE | 2020-03-28 08:26 | NUR ---
NURSE NOTES: patient awake and alert to name,other tyler confused.Respirations unlabored.IV fluids infusing as ordered.Dressing to the left hip clean and in place.Alex catheter is in place with marleen color urine noted in the collection bag.Breakfast at bedside,will assist patient.Bed alarm is on,call light within reach.
[2020-03-28] MEDS: Levodopa/Carbidopa 25/100 tab ORAL SCH ×3 (08:52→18:12)
[2020-03-28] MEDS: Docusate 100mg cap ORAL SCH ×3 (08:52→18:11)
[2020-03-28] MEDS: Benztropine 1mg tab ORAL SCH ×2 (08:53→18:12)
[2020-03-28 08:55] VITALS: BP 99/64
--- NOTE | 2020-03-28 09:17 | 48 Hour Post Anesthesia Eval ---
Post Anesthesia Evaluation Procedure: ORIF of L femoral neck Fx Date of Evaluation: Mar 28, 2020 Time of Evaluation: 09:15 Blood Pressure Systolic: 104 0: 76 Pulse Rate: 78 Respiratory Rate: 22 Temperature (Fahrenheit): 97.8 O2 Sat by Pulse Oximetry: 98 Airway: patent Nausea: No Vomiting: No Pain Intensity: 2 Hydration Status: adequate Cardiopulmonary Status: stable Mental Status/LOC: patient returned to baseline Follow-up Care/Observations: n/a Post-Anesthesia Complications: none Follow-up care needed: N/A Farrukh Naranjo MD Mar 28, 2020 09:17
--- NOTE | 2020-03-28 11:45 | Diagnostic Imaging Report ---
INDICATION: Pain, intraoperative TECHNIQUE: Intraoperative imaging Fluoroscopy time: 42.1 seconds Total dose: 0.50891 mGym2 Total number of images: 4 COMPARISON: Hip CT scan dated 03/25/2020 FINDINGS: Intraoperative images document placement of 3 surgical nails for reduction of previously reported left hip fracture. IMPRESSION: Intraoperative imaging, as described
[2020-03-28] MEDS: Tamsulosin 0.4mg cap ORAL SCH (11:58)
[2020-03-28 12:00] VITALS: BP 115/59
--- NOTE | 2020-03-28 14:52 | General Progress Note ---
Subjective Allergies: Coded Allergies: No Known Allergies (Unverified , 03/24/20) Subjective more awake pain is controlled tolerayed the surgery pt/ot eval Objective Last 24 Hour Vital Signs Date Time Temp Pulse Resp B/P (MAP) Pulse Ox O2 Delivery O2 Flow Rate FiO2 03/28/20 12:00 97.3 102 20 115/59 (77) 96 03/28/20 09:40 Room Air 03/28/20 09:17 78 22 98 03/28/20 08:55 98.2 107 20 99/64 (76) 99 03/28/20 08:51 107 99/64 03/28/20 04:00 97.6 90 20 108/68 (81) 99 03/28/20 00:00 97.4 85 20 113/58 (76) 97 03/27/20 21:00 Room Air 03/27/20 20:53 80 100/53 03/27/20 20:00 97.4 80 20 100/53 (69) 99 03/27/20 18:00 97.4 66 16 116/59 (78) 99 03/27/20 17:32 97.3 63 15 112/54 (73) 99 03/27/20 17:02 97.1 61 17 109/60 (76) 99 03/27/20 16:31 97.4 64 16 108/52 (70) 98 03/27/20 16:10 97.2 61 14 114/51 (72) 99 03/27/20 16:05 Room Air 03/27/20 16:00 97.2 62 20 99/50 100 Room Air 03/27/20 15:45 64 20 100/53 99 Room Air 03/27/20 15:30 62 18 99/52 100 Room Air 03/27/20 15:15 66 19 102/52 100 Room Air 03/27/20 15:00 61 20 101/51 100 Room Air Intake and Output 03/27/20 03/28/20 19:00 07:00 Intake Total 1250 ml 850 ml Output Total 1400 ml Balance 1250 ml -550 ml Intake Oral 400 ml IV Total 850 ml 850 ml Output Urine Total 1400 ml # Voids 100 Height (Feet): 5 Height (Inches): 9.00 Weight (Pounds): 147 General Appearance: alert EENT: normal ENT inspection Neck: supple Cardiovascular: regular rhythm Respiratory/Chest: normal breath sounds Abdomen: non tender, soft Extremities: non-tender, normal inspection Assessment/Plan Status: doing well Assessment/Plan: 1 fracure lt hip for surgery s/p orif 2 htn 3 dementia 4 depression for hip surgery ortho and cardiology on case dw Tom Haque MD Mar 28, 2020 14:52
--- NOTE | 2020-03-28 15:10 | NUR ---
*-*DISCHARGE PLANNING*-* PATIENT HAS BEEN REFERRED BACK TO: [facility] P: [phone] S/W JARROD, GAVE A NUMBER FOR SOMEONE IN ADMISSIONS NAMED KAMALJIT. PLACED A CALL TO KAMALJIT, NO ANSWER, LEFT VOICE MESSAGES TO GET A ROOM NUMBER.
--- NOTE | 2020-03-28 15:22 | Cardiac Electrophysiology PN ---
Assessment/Plan Assessment/Plan 1. Hypertension. On Lopressor 25 bid. 2. Status post fall and nondisplaced left femoral neck fracture. EKG nonischemic and echocardiogram showed Nl EF. Chest x-ray showed no acute process. S/P ORIF 03/28/20 3. Benign prostatic hypertrophy, on Flomax. 4. History of seizures, on Keppra. 5. Parkinson's, on Cogentin and Sinemet. Subjective Subjective ECho Nl EF. No CP or SOB. Tolerated surgery yesterday Objective Last 24 Hour Vital Signs Date Time Temp Pulse Resp B/P (MAP) Pulse Ox O2 Delivery O2 Flow Rate FiO2 03/28/20 12:00 97.3 102 20 115/59 (77) 96 03/28/20 09:40 Room Air 03/28/20 09:17 78 22 98 03/28/20 08:55 98.2 107 20 99/64 (76) 99 03/28/20 08:51 107 99/64 03/28/20 04:00 97.6 90 20 108/68 (81) 99 03/28/20 00:00 97.4 85 20 113/58 (76) 97 03/27/20 21:00 Room Air 03/27/20 20:53 80 100/53 03/27/20 20:00 97.4 80 20 100/53 (69) 99 03/27/20 18:00 97.4 66 16 116/59 (78) 99 03/27/20 17:32 97.3 63 15 112/54 (73) 99 03/27/20 17:02 97.1 61 17 109/60 (76) 99 03/27/20 16:31 97.4 64 16 108/52 (70) 98 03/27/20 16:10 97.2 61 14 114/51 (72) 99 03/27/20 16:05 Room Air 03/27/20 16:00 97.2 62 20 99/50 100 Room Air 03/27/20 15:45 64 20 100/53 99 Room Air 03/27/20 15:30 62 18 99/52 100 Room Air Intake and Output 03/27/20 03/28/20 19:00 07:00 Intake Total 1250 ml 850 ml Output Total 1400 ml Balance 1250 ml -550 ml Intake Oral 400 ml IV Total 850 ml 850 ml Output Urine Total 1400 ml # Voids 100 Microbiology Date/Time Source Procedure Growth Status 03/26/20 14:30 Nasopharynx SARS-CoV-2 RdRp Gene Assay - Final Complete Objective HEAD AND NECK: Showed no JVD. LUNGS: Clear. CARDIOVASCULAR: Shows regular S1 and S2 with no gallop or murmur. ABDOMEN: Soft. EXTREMITIES: No pitting edema. S/P left hip ORIF. Aris Ohara MD Mar 28, 2020 15:22
[2020-03-28 16:00] VITALS: BP 120/65
--- NOTE | 2020-03-28 17:11 | NUR ---
PT Note PT el completed, treatment initiated. Patient required max cues to follow through with instructions, has muscle weakness, decreased balance and pain on the left hip, limiting his functional mobility. Patient needs PT to increase his muscle strength, balance, ROM and decrease pain to improve his functional mobility and gait. Addendum: 03/28/20 at 1712 by GELA MONTANEZ PT Amended: Links added.
--- NOTE | 2020-03-28 18:25 | NUR ---
NURSE NOTES: Left hip dressing remains clean and in place. Left foot toes good color warm to touch.patient tolerating meals,and liquids.IV saline lock,but patient new IV will need to reinsert new IV.DR Cueto updated,patient had Physical Therapy today,only was able to stand at bedside.DR Cueto aware and champagne catheter will remain intact and to D/C champagne in AM 03/29/20.Bed alarm is on,call light within reach.Patient state no complaint of pain at this time.
--- NOTE | 2020-03-28 19:43 | NUR ---
NURSE HAND-OFF: Merry CHANG Important Events on Shift:[]Abi mcgee D/C in Am 03/29 20 Patient Status: [] Diet: [soft easy chew.patient tolerating meals and liquids. Pending Orders: [] Pending Results/Labs:[] Pending MD notification:[] Latest Vital Signs: Temperature 99.0 , Pulse 96 , B/P 120 /65 , Respiratory Rate 20 , O2 SAT 96 , Room Air, O2 Flow Rate 2.0 . Vital Sign Comment: [] Latest Cam Fall Score: 80 Fall Risk: High Risk Safety Measures: Call light Within Reach, Bed Alarm Zone 1, Side Rails Side Rails x3, Bed position Low and Locked. Fall Precautions: Yellow Socks y Yellow Gown y Door Sign y Patient Fall Education bed alarm on Report given to [].
--- NOTE | 2020-03-28 19:44 | NUR ---
NURSE NOTES: Received patient in no apparent distress. A&OX1, confused. IV site patent and intact. Dressing noted on left hip, dry and intact. Alex cath draining well by gravity, marleen urine noted. Bed in lowest position. Call light within reach. Will continue to monitor.
[2020-03-28 20:00] VITALS: BP 124/67
[2020-03-29] VITALS: BP 111/57
[2020-03-29 04:00] VITALS: BP 123/63
[2020-03-29] MEDS: D5 1/2NS w/KCl 20mEq 1,000 ML IV SCH ×2 (05:20→21:08)
[2020-03-29] MEDS: Heparin 5000 units/ml inj SUBQ SCH ×3 (05:21→21:09)
--- NOTE | 2020-03-29 06:10 | NUR ---
NURSE NOTES: Alex cath removed.
--- NOTE | 2020-03-29 07:22 | NUR ---
NURSE HAND-OFF: Important Events on Shift: Removed Alex cath at 0610. Monitor voiding. Patient Status: Diet: Soft diet Pending Orders: Pending Results/Labs: Pending MD notification: Latest Vital Signs: Temperature 98.7 , Pulse 107 , B/P 123 /63 , Respiratory Rate 20 , O2 SAT 98 , Room Air, O2 Flow Rate 2.0 . Vital Sign Comment: Latest Cam Fall Score: 80 Fall Risk: High Risk Safety Measures: Call light Within Reach, Bed Alarm Zone 1, Side Rails Side Rails x3, Bed position Low and Locked. Fall Precautions: Yellow Socks Yellow Gown Door Sign Patient Fall Education Report given to Marti CHANG.
[2020-03-29 08:00] VITALS: BP 124/73
--- NOTE | 2020-03-29 08:09 | NUR ---
NURSE NOTES: Received patient lying in bed, in no apparent distress. A/OX1, confused. Left hand IV access patent and intact. Dressing noted on left hip, dry and intact. Alex cath has been removed by NOC BERNARDO Aranda at the end of his shift per report. External male catheter in place, no drainage so far. Bed locked in lowest position, call light within reach, side rails upx2. On bed alarm. Will continue to monitor and follow up with the plan of care.
[2020-03-29] MEDS: Tamsulosin 0.4mg cap ORAL SCH (08:54)
[2020-03-29] MEDS: Docusate 100mg cap ORAL SCH ×3 (08:54→18:28)
[2020-03-29] MEDS: Levodopa/Carbidopa 25/100 tab ORAL SCH ×3 (08:54→18:28)
[2020-03-29] MEDS: Benztropine 1mg tab ORAL SCH ×2 (08:55→18:28)
[2020-03-29 12:00] VITALS: BP 119/81
[2020-03-29 16:00] VITALS: BP 125/70
--- NOTE | 2020-03-29 18:31 | Cardiac Electrophysiology PN ---
Assessment/Plan Assessment/Plan 1. Hypertension. On Lopressor 25 bid. 2. Status post fall and left femoral neck fracture. EKG nonischemic and echocardiogram showed Nl EF. Chest x-ray showed no acute process. S/P ORIF 03/28/20 3. Benign prostatic hypertrophy, on Flomax. 4. History of seizures, on Keppra. 5. Parkinson's, on Cogentin and Sinemet. DW RN DC pending Subjective Subjective Echo Nl EF. No CP or SOB. Tolerated surgery. Alex was removed Objective Last 24 Hour Vital Signs Date Time Temp Pulse Resp B/P (MAP) Pulse Ox O2 Delivery O2 Flow Rate FiO2 03/29/20 16:00 97.9 94 18 125/70 (88) 100 03/29/20 12:00 98.9 98 18 119/81 (94) 99 03/29/20 09:00 Room Air 03/29/20 09:00 Room Air 03/29/20 08:54 111 124/73 03/29/20 08:00 99.1 111 19 124/73 (90) 100 03/29/20 04:00 98.7 107 20 123/63 (83) 98 03/29/20 00:00 98.6 98 20 111/57 (75) 97 03/28/20 21:00 Room Air 03/28/20 20:17 110 124/67 03/28/20 20:00 98.6 110 20 124/67 (86) 96 Intake and Output 03/28/20 03/29/20 19:00 07:00 Intake Total 1665 ml 315 ml Output Total 1050 ml 900 ml Balance 615 ml -585 ml Intake Oral 840 ml 240 ml IV Total 825 ml 75 ml Output Urine Total 1050 ml 900 ml # Voids 1 Objective HEAD AND NECK: Showed no JVD. LUNGS: Clear. CARDIOVASCULAR: Shows regular S1 and S2 with no gallop or murmur. ABDOMEN: Soft. EXTREMITIES: No pitting edema. S/P left hip ORIF. Aris Ohara MD Mar 29, 2020 18:31
--- NOTE | 2020-03-29 19:00 | NUR ---
NURSE NOTES: patient hasn't voided since am, when F/C was removed. Bladder scan done, 658cc urine. Obtained order from dr stanton for Alex catheter placement, placed Alex catheter Fr 16, pt presented 600cc dark yellow urine.
--- NOTE | 2020-03-29 19:15 | NUR ---
NURSE NOTES: Received pt. from Marti CHANG. Pt. is in bed, awake, alert and verbally responsive. breathing even and unlabored. No sob noted. Denies any pain at this time. With champagne cath that was just inserted 120 min,ago and draining well to a yellowish colored urine, moderate in amount. With bed in it's lowest position, with alarm on and locked. Will continue with plan of care.
--- NOTE | 2020-03-29 19:49 | NUR ---
NURSE HAND-OFF: Important Events on Shift:[urinary retention, bladder US 658cc, champagne catheter inserted with good output] Patient Status: [stable] Diet: [soft easy chew] Pending Orders: [] Pending Results/Labs:[] Pending MD notification:[] Latest Vital Signs: Temperature 97.9 , Pulse 94 , B/P 125 /70 , Respiratory Rate 18 , O2 SAT 100 , Room Air, O2 Flow Rate 2.0 . Vital Sign Comment: [] Latest Cam Fall Score: 80 Fall Risk: High Risk Safety Measures: Call light Within Reach, Bed Alarm Zone 1, Side Rails Side Rails x3, Bed position Low and Locked. Fall Precautions: Yellow Socks Yellow Gown Door Sign Patient Fall Education Report given to [BERNARDO Castillo].
[2020-03-29 20:00] VITALS: BP 97/67
[2020-03-30] VITALS: BP 129/66
[2020-03-30 04:00] VITALS: BP 133/68
--- NOTE | 2020-03-30 05:06 | NUR ---
NURSE NOTES: Pt. has slept good and in long intervals. Turned and repositioned for comfort and circulation. Visual check at frequent times. Vitals signs within normal. No complaints of pain noted. With champagne cath draining well to a orange colored urine, moderate in amount. With SCD attached to bry. legs and on at all times. No untoward s/s noted. Morning care provided. On continued ivf, infusing well. With dressing on left hip, dry and intact. 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 Will continue with plan of care.
[2020-03-30] MEDS: Heparin 5000 units/ml inj SUBQ SCH ×4 (06:00→22:00)
--- NOTE | 2020-03-30 07:17 | NUR ---
NURSE HAND-OFF: Important Events on Shift:post op, neuro check; pain mngt. Patient Status: with confusion as normal state Diet: Soft easy chew Pending Orders: Pending Results/Labs: Pending MD notification: Latest Vital Signs: Temperature 98.4 , Pulse 100 , B/P 133 /68 , Respiratory Rate 20 , O2 SAT 95 , Room Air, O2 Flow Rate 2.0 . Vital Sign Comment: Latest Cam Fall Score: 80 Fall Risk: High Risk Safety Measures: Call light Within Reach, Bed Alarm Zone 1, Side Rails Side Rails x3, Bed position Low and Locked. Fall Precautions: Yellow Socks Yellow Gown Door Sign Patient Fall Education Report given to Luis Alfredo CHANG
[2020-03-30 08:00] VITALS: BP 117/64
--- NOTE | 2020-03-30 09:17 | General Progress Note ---
Subjective Allergies: Coded Allergies: No Known Allergies (Unverified , 03/24/20) Subjective more awake pain is controlled tolerayed the surgery pt/ot eval Objective Last 24 Hour Vital Signs Date Time Temp Pulse Resp B/P (MAP) Pulse Ox O2 Delivery O2 Flow Rate FiO2 03/30/20 04:00 98.4 100 20 133/68 (89) 95 03/30/20 00:00 98.6 100 20 129/66 (87) 98 03/29/20 21:00 92 97/67 03/29/20 21:00 Room Air 03/29/20 20:00 98.6 92 20 97/67 (77) 98 03/29/20 16:00 97.9 94 18 125/70 (88) 100 03/29/20 12:00 98.9 98 18 119/81 (94) 99 Intake and Output 03/29/20 03/30/20 19:00 07:00 Intake Total 1050 ml 750 ml Output Total 1000 ml Balance 1050 ml -250 ml IV Total 750 ml 750 ml Other 300 ml Output Urine Total 1000 ml # Voids 1 # Bowel Movements 1 Height (Feet): 5 Height (Inches): 9.00 Weight (Pounds): 147 General Appearance: alert Neck: supple Cardiovascular: regular rhythm Respiratory/Chest: lungs clear Abdomen: soft, no organomegaly Extremities: non-tender Assessment/Plan Status: doing well Assessment/Plan: 1 fracure lt hip for surgery s/p orif 2 htn 3 dementia 4 depression hip surgery ortho and cardiology on case doing better Tom Dugan MD Mar 30, 2020 09:16
[2020-03-30] MEDS: Tamsulosin 0.4mg cap ORAL SCH (09:51)
[2020-03-30] MEDS: Docusate 100mg cap ORAL SCH ×3 (09:51→18:00)
[2020-03-30] MEDS: Levodopa/Carbidopa 25/100 tab ORAL SCH ×3 (09:52→18:00)
[2020-03-30] MEDS: Benztropine 1mg tab ORAL SCH ×2 (09:52→18:00)
[2020-03-30] MEDS: D5 1/2NS w/KCl 20mEq 1,000 ML IV SCH ×2 (09:53→22:03)
[2020-03-30 11:14] LABS: HEMATOCRIT 23.6 % (42.0-52.0); HEMOGLOBIN 7.7 G/DL (14.2-18.0); MEAN CORPUSCULAR VOLUME 84 FL (80-99); PLATELET COUNT 296 K/UL (150-450); RED BLOOD COUNT 2.82 M/UL (4.70-6.10); RED CELL DISTRIBUTION WIDTH 14.6 % (11.6-14.8); WHITE BLOOD COUNT 6.2 K/UL (4.8-10.8)
[2020-03-30 11:30] LABS: ANION GAP 10 mmol/L (5-15); BLOOD UREA NITROGEN 14 mg/dL (7-18); CARBON DIOXIDE 21 MMOL/L (21-32); CHLORIDE 109 MMOL/L (98-107); CREATININE 1.2 MG/DL (0.55-1.30); POTASSIUM 3.7 MMOL/L (3.5-5.1); SODIUM 140 MMOL/L (136-145)
[2020-03-30 12:00] VITALS: BP 120/65
--- NOTE | 2020-03-30 12:54 | NUR ---
FUNDRAISING ASSISTANT NOTES UPDATED CLINICALS FAXED TO [facility]. PLACED MULTIPLE CALLS TO FACILITY, NO ANSWER. PT TO RECEIVE A UNIT OF [facility]'S PENDING CONSENT.
[2020-03-30] MEDS ORDERED: Sterile Water Irrig 2000ml IRRIG ONE (12:58)
[2020-03-30] MEDS ORDERED: LR 1000ml ONE (12:58)
--- NOTE | 2020-03-30 13:49 | Cardiac Electrophysiology PN ---
Assessment/Plan Assessment/Plan 1. Hypertension. On Lopressor 25 bid. 2. Status post fall and left femoral neck fracture. EKG nonischemic and Echocardiogram showed Nl EF. Chest x-ray showed no acute process. S/P ORIF 03/28/20 3. Benign prostatic hypertrophy, on Flomax. 4. History of seizures, on Keppra. 5. Parkinson's, on Cogentin and Sinemet. 6. Anemia with Hb 7. Getting PR[facility] today before DC DW RN Subjective Subjective Echo Nl EF. No CP or SOB. Tolerated surgery. Alex was removed. Two physician consent signed for PRBC transfusion Objective Last 24 Hour Vital Signs Date Time Temp Pulse Resp B/P (MAP) Pulse Ox O2 Delivery O2 Flow Rate FiO2 03/30/20 12:00 97.7 98 20 120/65 (83) 98 03/30/20 09:52 99 117/64 03/30/20 09:00 Room Air 03/30/20 08:00 97.9 99 20 117/64 (81) 99 03/30/20 04:00 98.4 100 20 133/68 (89) 95 03/30/20 00:00 98.6 100 20 129/66 (87) 98 03/29/20 21:00 92 97/67 03/29/20 21:00 Room Air 03/29/20 20:00 98.6 92 20 97/67 (77) 98 03/29/20 16:00 97.9 94 18 125/70 (88) 100 Intake and Output 03/29/20 03/30/20 19:00 07:00 Intake Total 1050 ml 750 ml Output Total 1000 ml Balance 1050 ml -250 ml IV Total 750 ml 750 ml Other 300 ml Output Urine Total 1000 ml # Voids 1 # Bowel Movements 1 Laboratory Tests Test 03/30/20 10:15 White Blood Count 6.2 K/UL (4.8-10.8) Red Blood Count 2.82 M/UL (4.70-6.10) L Hemoglobin 7.7 G/DL (14.2-18.0) L Hematocrit 23.6 % (42.0-52.0) L Mean Corpuscular Volume 84 FL (80-99) Mean Corpuscular Hemoglobin 27.3 PG (27.0-31.0) Mean Corpuscular Hemoglobin Concent 32.7 G/DL (32.0-36.0) Red Cell Distribution Width 14.6 % (11.6-14.8) Platelet Count 296 K/UL (150-450) Mean Platelet Volume 5.5 FL (6.5-10.1) L Neutrophils (%) (Auto) % (45.0-75.0) Lymphocytes (%) (Auto) % (20.0-45.0) Monocytes (%) (Auto) % (1.0-10.0) Eosinophils (%) (Auto) % (0.0-3.0) Basophils (%) (Auto) % (0.0-2.0) Differential Total Cells Counted 100 Neutrophils % (Manual) 58 % (45-75) Lymphocytes % (Manual) 32 % (20-45) Monocytes % (Manual) 10 % (1-10) Eosinophils % (Manual) 0 % (0-3) Basophils % (Manual) 0 % (0-2) Band Neutrophils 0 % (0-8) Platelet Estimate Adequate Platelet Morphology Normal Anisocytosis 1+ Sodium Level 140 MMOL/L (136-145) Potassium Level 3.7 MMOL/L (3.5-5.1) Chloride Level 109 MMOL/L (98-107) H Carbon Dioxide Level 21 MMOL/L (21-32) Anion Gap 10 mmol/L (5-15) Blood Urea Nitrogen 14 mg/dL (7-18) Creatinine 1.2 MG/DL (0.55-1.30) Estimat Glomerular Filtration Rate > 60 mL/min (>60) Glucose Level 100 MG/DL (74-106) Calcium Level 8.0 MG/DL (8.5-10.1) L Objective HEAD AND NECK: Showed no JVD. LUNGS: Clear. CARDIOVASCULAR: Shows regular S1 and S2 with no gallop or murmur. ABDOMEN: Soft. EXTREMITIES: No pitting edema. S/P left hip ORIF. Aris Ohara MD Mar 30, 2020 13:48
--- NOTE | 2020-03-30 15:40 | NUR ---
NURSE NOTES: patients hemoglobin is 7.7, primary MD ordered a unit of blood. patient unable to sign. blood consent signed by 2 MDs, patients vitals stable, blood verified by 2 RNs, blood transfusion started at 1515, at 1530 vitals stable. blood transfusing at 75cc/hr.
[2020-03-30 16:00] VITALS: BP 143/72
--- NOTE | 2020-03-30 16:10 | NUR ---
CASE MANAGEMENT:REVIEW SI; POD #3 CLOSED REDUCTION OF PERCUTANEOUS PINNING OF THE LEFT HIP 98.6 111 20 129/66 95% ON RA H/H 7.7/23.6 CL 109 IS;IVF D5W @ 75 ML/HR HEPARIN SUBQ Q8 LOPRESSOR PO Q12 KEPPRA PO Q12 PEPCID PO BID SINEMET PO TID TRANSFUSED 1 UNIT PRBC MED SURG STATUS DCP;FROM [facility]
--- NOTE | 2020-03-30 18:58 | NUR ---
NURSE NOTES: 1 unit of PRBC given. no reactions. patient stable, no signs of distress or pain.
--- NOTE | 2020-03-30 19:01 | NUR ---
NURSE HAND-OFF: Important Events on Shift:1 unit of PRBC given Patient Status: stable Diet: Regular soft easy chew Pending Orders: n/a Pending Results/Labs:n/a Pending MD notification:n/a Latest Vital Signs: Temperature 98.1 , Pulse 105 , B/P 143 /72 , Respiratory Rate 20 , O2 SAT 100 , Room Air, O2 Flow Rate 2.0 . Vital Sign Comment: stable Latest Cam Fall Score: 80 Fall Risk: High Risk Safety Measures: Call light Within Reach, Bed Alarm Zone 1, Side Rails Side Rails x3, Bed position Low and Locked. Fall Precautions: Yellow Socks Yellow Gown Door Sign Patient Fall Education Report given to BERNARDO Garrido.
--- NOTE | 2020-03-30 19:54 | NUR ---
NURSE NOTES: Patient in bed, on room air, no complaint this time. Instructed to use call light for assistance. Call light and needs in reach. Bed in lowest, lock engaged and alarm on. Will continue plan of care.
[2020-03-30 20:00] VITALS: BP 124/72
--- NOTE | 2020-03-30 21:30 | Operative Note - Dictated ---
DATE OF OPERATION: 03/27/2020 PREOPERATIVE DIAGNOSIS: Left hip valgus impacted femoral neck fracture. POSTOPERATIVE DIAGNOSIS: Left hip valgus impacted femoral neck fracture. PROCEDURE: Closed reduction and percutaneous pinning, left hip. SURGEON: Jose Cueto MD ANESTHESIA: General. INDICATION FOR PROCEDURE: The patient is a pleasant gentleman who sustained a fall, diagnosed with nondisplaced valgus impacted femoral neck fracture, indicative of operative fixation with closed reduction and percutaneous pinning. Risks, limitations, expectations, discussed. The patient does not have power of securities attorney and therefore two physician consent for surgery was obtained. DESCRIPTION OF PROCEDURE: After informed consent obtained, the patient was brought into the operating room and placed under general anesthesia. Left leg was prepped and draped in a sterile manner. After being placed carefully on a fracture table, reduction was confirmed under fluoroscopy. Lateral skin incision was then made. Three guidewires were placed in inverted triangle pattern along with 6.5 cannulated screws. Once that was completed, the wound was copiously irrigated. The skin was closed using #1 Vicryl suture, 2-0 Vicryl suture, and 3-0 Monocryl sutures. Compression dressing was applied. ESTIMATED BLOOD LOSS: None. COMPLICATIONS: None. SPECIMENS: None. IMPLANTS: Include three 6.5 hip cannulated screws. Jose Cueto M.D. DR: Letty JOB#: [id number] CC:
[2020-03-31] VITALS: BP 131/68
[2020-03-31 04:00] VITALS: BP 132/87
[2020-03-31] MEDS: Heparin 5000 units/ml inj SUBQ SCH (05:50)
--- NOTE | 2020-03-31 06:32 | NUR ---
NURSE HAND-OFF: Important Events on Shift: Patient refused Heparin shots Patient Status: stable Diet: soft easy chew Pending Orders: Pending Results/Labs: Pending MD notification: Latest Vital Signs: Temperature 98.1 , Pulse 83 , B/P 132 /87 , Respiratory Rate 18 , O2 SAT 99 , Room Air, O2 Flow Rate 2.0 . Vital Sign Comment: Latest Cam Fall Score: 80 Fall Risk: High Risk Safety Measures: Call light Within Reach, Bed Alarm Zone 1, Side Rails Side Rails x3, Bed position Low and Locked. Fall Precautions: Yellow Socks Yellow Gown Door Sign Patient Fall Education
--- NOTE | 2020-03-31 07:03 | NUR ---
HAND-OFF: Report given to BERNARDO Garcia.
--- NOTE | 2020-03-31 07:29 | General Progress Note ---
Subjective Allergies: Coded Allergies: No Known Allergies (Unverified , 03/24/20) Subjective more awake pain is controlled tolerayed the surgery pt/ot eval Objective Last 24 Hour Vital Signs Date Time Temp Pulse Resp B/P (MAP) Pulse Ox O2 Delivery O2 Flow Rate FiO2 03/31/20 04:00 98.1 83 18 132/87 (102) 99 03/31/20 00:00 98.3 80 17 131/68 (89) 99 03/30/20 21:58 105 124/72 03/30/20 21:00 Room Air 03/30/20 20:00 97.8 105 18 124/72 (89) 99 03/30/20 16:00 98.1 105 20 143/72 (95) 100 03/30/20 12:00 97.7 98 20 120/65 (83) 98 03/30/20 09:52 99 117/64 03/30/20 09:00 Room Air 03/30/20 08:00 97.9 99 20 117/64 (81) 99 Intake and Output 03/30/20 03/31/20 19:00 07:00 Intake Total 555 ml 825 ml Output Total 1000 ml Balance 555 ml -175 ml Intake Oral 480 ml IV Total 75 ml 825 ml Output Urine Total 1000 ml # Voids 1 # Bowel Movements 1 Laboratory Tests 03/30/20 10:15: White Blood Count 6.2, Red Blood Count 2.82L, Hemoglobin 7.7L, Hematocrit 23.6L, Mean Corpuscular Volume 84, Mean Corpuscular Hemoglobin 27.3, Mean Corpuscular Hemoglobin Concent 32.7, Red Cell Distribution Width 14.6, Platelet Count 296, Mean Platelet Volume 5.5L, Neutrophils (%) (Auto) , Lymphocytes (%) (Auto) , Monocytes (%) (Auto) , Eosinophils (%) (Auto) , Basophils (%) (Auto) , Differential Total Cells Counted 100, Neutrophils % (Manual) 58, Lymphocytes % (Manual) 32, Monocytes % (Manual) 10, Eosinophils % (Manual) 0, Basophils % (Manual) 0, Band Neutrophils 0, Platelet Estimate Adequate, Platelet Morphology Normal, Anisocytosis 1+, Sodium Level 140, Potassium Level 3.7, Chloride Level 109H, Carbon Dioxide Level 21, Anion Gap 10, Blood Urea Nitrogen 14, Creatinine 1.2, Estimat Glomerular Filtration Rate > 60, Glucose Level 100, Calcium Level 8.0L Height (Feet): 5 Height (Inches): 9.00 Weight (Pounds): 147 General Appearance: alert EENT: PERRL/EOMI Cardiovascular: normal rate Respiratory/Chest: lungs clear Abdomen: non tender, soft Extremities: non-tender Assessment/Plan Status: doing well Assessment/Plan: 1 fracure lt hip for surgery s/p orif 2 htn 3 dementia 4 depression 5 anemia type and cross 1 u prbc , check cbc this am hip surgery ortho and cardiology on case doing better dc plan Tom Dugan MD Mar 31, 2020 07:29
--- NOTE | 2020-03-31 07:49 | NUR ---
NURSE NOTES: received patient in bed resting comfortably, he is AOx1. he is eating his breakfast. IV patent and dressing is clean. Patient has a champagne catheter 16 hebrew that is draining light yellow urine. Patient is stable and will continue to be monitored.
[2020-03-31 08:00] VITALS: BP 116/63
[2020-03-31] MEDS: Docusate 100mg cap ORAL SCH ×2 (09:34→12:25)
[2020-03-31] MEDS: Levodopa/Carbidopa 25/100 tab ORAL SCH ×2 (09:34→12:27)
[2020-03-31] MEDS: Benztropine 1mg tab ORAL SCH (09:35)
[2020-03-31] MEDS: Tamsulosin 0.4mg cap ORAL SCH (09:35)
--- NOTE | 2020-03-31 10:20 | NUR ---
RD ASSESSMENT & RECOMMENDATIONS SEE CARE ACTIVITY FOR COMPLETE ASSESSMENT DAILY ESTIMATED NEEDS: Needs based on Surgery 67.7kg 25-35 kcals/kg 5258-2467 total kcals 1-2 g protein/kg 68-135 g total protein 25-30 mL/kg 8398-5739 total fluid mLs NUTRITION DIAGNOSIS: Increased kcal and pro needs r/t surgery as evidenced by pt @93% of ideal body weight, mild wasting noted, s/p L hip closed reduction and percutaneous pinning. CURRENT DIET: Soft easy chew PO DIET RECOMMENDATIONS: Regular, texture as tolerated ADDITIONAL RECOMMENDATIONS: 1) Add Ensure BID 2) Daily wts calibrated: 67.7kg per bed scale 3) Surgical wound healing: add SHAHIDA BID + Vit C 250mg daily 4) Check lytes, monitor hydration status
[2020-03-31 11:35] LABS: BASOPHILS % (AUTO) 2.1 % (0.0-2.0); EOSINOPHILS % (AUTO) 3.8 % (0.0-3.0); HEMATOCRIT 27.7 % (42.0-52.0); HEMOGLOBIN 8.9 G/DL (14.2-18.0); LYMPHOCYTES % (AUTO) 32.7 % (20.0-45.0); MEAN CORPUSCULAR VOLUME 87 FL (80-99); MONOCYTES % (AUTO) 9.1 % (1.0-10.0); NEUTROPHILS % (AUTO) 52.3 % (45.0-75.0); PLATELET COUNT 279 K/UL (150-450); RED BLOOD COUNT 3.19 M/UL (4.70-6.10); RED CELL DISTRIBUTION WIDTH 14.3 % (11.6-14.8); WHITE BLOOD COUNT 4.8 K/UL (4.8-10.8)
[2020-03-31 11:54] LABS: ANION GAP 8 mmol/L (5-15); BLOOD UREA NITROGEN 15 mg/dL (7-18); CALCIUM 7.8 MG/DL (8.5-10.1); CARBON DIOXIDE 23 MMOL/L (21-32); CHLORIDE 106 MMOL/L (98-107); CREATININE 1.2 MG/DL (0.55-1.30); POTASSIUM 3.8 MMOL/L (3.5-5.1); SODIUM 137 MMOL/L (136-145)
[2020-03-31 12:00] VITALS: BP 106/57
[2020-03-31] MEDS: D5 1/2NS w/KCl 20mEq 1,000 ML IV SCH (12:25)
--- NOTE | 2020-03-31 12:29 | NUR ---
*-*DISCHARGE PLANNED*-* PATIENT HAS BEEN ACCEPTED AND WILL BE DISCHARGED TO: [facility] P: [phone] FRO NURSE TO NURSE REPORT ROOM# C [facility] SET FOR 1:30PM S/W JOSÉ MIGUEL [id number]
--- NOTE | 2020-03-31 12:30 | Cardiac Electrophysiology PN ---
Assessment/Plan Assessment/Plan 1. Hypertension. On Lopressor 25 bid. 2. Status post fall and left femoral neck fracture. EKG nonischemic and Echocardiogram showed Nl EF. Chest x-ray showed no acute process. S/P ORIF 03/28/20 3. Benign prostatic hypertrophy, on Flomax. 4. History of seizures, on Keppra. 5. Parkinson's, on Cogentin and Sinemet. 6. Anemia with Hb 7. S/P PRBC DW RN DC today Subjective Subjective Echo Nl EF. No CP or SOB. Tolerated surgery. Alex was removed. Had 1 unit PRBC transfusion yesterday Objective Last 24 Hour Vital Signs Date Time Temp Pulse Resp B/P (MAP) Pulse Ox O2 Delivery O2 Flow Rate FiO2 03/31/20 12:00 97.8 74 18 106/57 (73) 98 03/31/20 09:34 83 116/63 03/31/20 09:00 Room Air 03/31/20 08:00 97.9 83 18 116/63 (80) 99 03/31/20 04:00 98.1 83 18 132/87 (102) 99 03/31/20 00:00 98.3 80 17 131/68 (89) 99 03/30/20 21:58 105 124/72 03/30/20 21:00 Room Air 03/30/20 20:00 97.8 105 18 124/72 (89) 99 03/30/20 16:00 98.1 105 20 143/72 (95) 100 Intake and Output 03/30/20 03/31/20 19:00 07:00 Intake Total 555 ml 825 ml Output Total 1000 ml Balance 555 ml -175 ml Intake Oral 480 ml IV Total 75 ml 825 ml Output Urine Total 1000 ml # Voids 1 # Bowel Movements 1 Laboratory Tests Test 03/31/20 11:05 White Blood Count 4.8 K/UL (4.8-10.8) Red Blood Count 3.19 M/UL (4.70-6.10) L Hemoglobin 8.9 G/DL (14.2-18.0) L Hematocrit 27.7 % (42.0-52.0) L Mean Corpuscular Volume 87 FL (80-99) Mean Corpuscular Hemoglobin 27.8 PG (27.0-31.0) Mean Corpuscular Hemoglobin Concent 32.0 G/DL (32.0-36.0) Red Cell Distribution Width 14.3 % (11.6-14.8) Platelet Count 279 K/UL (150-450) Mean Platelet Volume 6.2 FL (6.5-10.1) L Neutrophils (%) (Auto) 52.3 % (45.0-75.0) Lymphocytes (%) (Auto) 32.7 % (20.0-45.0) Monocytes (%) (Auto) 9.1 % (1.0-10.0) Eosinophils (%) (Auto) 3.8 % (0.0-3.0) H Basophils (%) (Auto) 2.1 % (0.0-2.0) H Sodium Level 137 MMOL/L (136-145) Potassium Level 3.8 MMOL/L (3.5-5.1) Chloride Level 106 MMOL/L (98-107) Carbon Dioxide Level 23 MMOL/L (21-32) Anion Gap 8 mmol/L (5-15) Blood Urea Nitrogen 15 mg/dL (7-18) Creatinine 1.2 MG/DL (0.55-1.30) Estimat Glomerular Filtration Rate > 60 mL/min (>60) Glucose Level 94 MG/DL (74-106) Calcium Level 7.8 MG/DL (8.5-10.1) L Objective HEAD AND NECK: Showed no JVD. LUNGS: Clear. CARDIOVASCULAR: Shows regular S1 and S2 with no gallop or murmur. ABDOMEN: Soft. EXTREMITIES: No pitting edema. S/P left hip ORIF. Aris Ohara MD Mar 31, 2020 12:30
--- NOTE | 2020-03-31 13:05 | CDS Physician Query ---
Clarification is required for compliance, coding accuracy, and to reflect severity of illness for this patient Dear Dr. Yoan Dugan Date: 03/31/2020 Land Measurer/ CDS Name: Crystal Agee Clinical Documentation shows: 79 year old male status post closed reduction and percutaneous pinning for left hip fracture 03/31 progress note: anemia type and cross 1 u prbc , check cbc Labs: 03/24 Hb 9.2 03/30 Hb 7.7 Treatment: Transfusion 1 unit RBC on 03/30 Please clarify the specific type of anemia below: Acuity []Acute []Acute on Chronic []Chronic Etiology [] Blood loss [] Iron deficiency [] Anemia of chronic disease [] Dilutional [] Postoperative [] Unable to determine [] Other: Present on Admission: [] Yes [] No [] Clinically Undetermined Physician signature Date Please also document in your Progress Notes and/or Discharge Summary and indicate if the condition was present on admission. BULL
--- NOTE | 2020-03-31 13:49 | NUR ---
NURSE NOTES: patient was discharged today at 1400 back to [facility]. He was picked up by ambulace and escorted by 3 teacher vocal. patient is AOx2, not pain, or respiratory distress. Alex was D/Zenon and IV. no swelling or bleeding. Patient left with the discharge packet and he didn't have any belongings. No next of kin was notified due to none to advice.
--- NOTE | 2020-04-01 04:08 | Cardiology Report ---
APPROVED REPORT EKG Measurement Heart [id number] CT 150P37 [id number] <Conclusion> Sinus rhythm with premature atrial complexes Otherwise normal ECG
--- NOTE | 2020-04-01 04:15 | Cardiology Report ---
APPROVED REPORT EKG Measurement Heart [id number] [place] 148P57 [id number] <Conclusion> Sinus rhythm with premature atrial complexes Prolonged QT Abnormal ECG
--- NOTE | 2020-04-01 04:15 | Cardiology Report ---
APPROVED REPORT EXAM: Two-dimensional and M-mode echocardiogram with Doppler and color Doppler. INDICATION Pre-Op M-Mode DIMENSIONS IVSd1.2 (0.7-1.1cm)Left Atrium (MM)3.3 (1.6-4.0cm) LVDd4.6 (3.5-5.6cm)Aortic Root3.6 (2.0-3.7cm) PWd1.5 (0.7-1.1cm)Aortic Cusp Exc.1.8 (1.5-2.0cm) IVSs1.5 cm LVDs2.9 (2.5-4.0cm) PWs2.3 cm <Conclusion> Limited and technically difficult study due to pt's breathing, position and constant movement. Normal left ventricular chamber size, systolic function and wall motion to extent visualized. Left ventricular ejection fraction estimated to be 55 %. No evidence of left ventricular hypertrophy. No evidence of pericardial effusion. All other cardiac chamber sizes are within normal limits. Focal aortic valve sclerosis with adequate cusp excursion. Thickened mitral valve leaflets with normal excursion. Mitral annulus and aortic root calcification. Pulmonic valve not well visualized. Normal tricuspid valve structure. Subcostal view unobtainable. IVC at normal size with physiologic collapse. A color flow and spectral Doppler study was performed and revealed: No aortic regurgitation. Trace mitral regurgitation. Mitral diastolic velocities suggest reduced left ventricular relaxation c/w mild LV diastolic dysfunction (Grade I ). Trace to mild tricuspid regurgitation. Tricuspid systolic velocities suggests peak right ventricular systolic pressure of 31 mmHg. No pulmonic regurgitation present.
--- NOTE | 2020-04-02 08:04 | Discharge Summary ---
Discharge Summary Discharge Summary _ DATE OF ADMISSION: 03/24/2020 DATE OF DISCHARGE: 03/31/2020 DISCHARGED BY: Dr. Dugan REASON FOR ADMISSION: 79 years old male, resident of nursing home facility, with past medical history of hypertension, Parkinson disease, BPH, seizure disorder, dementia, was brought from the nursing home facility for evaluation of the left hip pain. Patient sustained a fall at the facility and subsequently underwent x-ray ; findings were concerning for left hip fracture. Patient by himself had severe dementia and was unable to provide any history. Upon evaluation vital signs were stable. Laboratory work-up revealed no leukocytosis, but evidence of anemia with hemoglobin 9.2, hematocrit 28.1. Stable electrolytes. BUN 38, creatinine 1.7. Albumin 2.4. Troponin was negative. EKG revealed sinus rhythm, no acute ischemic changes. X-ray of the hip revealed nondisplaced left femoral neck fracture. Chest x-ray revealed no acute cardiopulmonary pathology. Rapid COVID-19 was negative . Surgeon consulted. Patient admitted to medical surgical floor for further management. CONSULTANTS: orthopedic surgeon tree planter Dr. Vieyra [facility]: Patient admitted to medical surgical floor. Surgery and cardiology followed. CT scan of the left hip revealed nondisplaced, slightly impacted, slightly angulated left femoral neck fracture. Ripper Operator consulted for clearance for surgery. Echocardiogram revealed preserved ejection fraction of 55%. No evidence of wall motion abnormality. Blood pressure was managed with beta-zoie, remained stable. EKG was nonischemic. Patient was cleared for surgery. Patient subsequently undergone closed reduction and percutaneous pinning of left hip fracture on 03/28. Course of recovery was uneventful. Pain management was addressed as needed. Hip precaution maintained. Patient was working with a physical therapist. Precaution maintained. DVT prophylaxis provided. Patient received 1 unit of packed red blood cells for hemoglobin 7.7, hematocrit 23.6. Prior to discharge hemoglobin 8.9, hematocrit 27.7. Renal parameters and electrolytes were closely monitored, electrolytes corrected as needed, nephrotoxic's were avoided. Creatinine from 1.7 on admission down to 1.2. Acute kidney injury resolved. Seizure precaution maintained. Keppra continued. No evidence of seizure activity while in the hospital. Cogentin and Sinemet continued. Protein supplements provided as per registered dietitian recommendation. Bowel regimen instituted. Supportive care provided. Patient clinically stabilized and was ready for transfer back to nursing home [facility] for continuation of care. FINAL DIAGNOSES: Left hip valgus impacted femoral neck fracture secondary to fall Status post closed reduction and percutaneous pinning left hip Hypertension Anemia requiring blood transfusion Parkinson disease Seizure disorder BPH Dementia Depression DISCHARGE MEDICATIONS: See Medication Reconciliation list. DISCHARGE INSTRUCTIONS: Patient was discharged to the nursing home facility. Follow up with medical doctor at the facility. I have been assigned to dictate discharge summary for this account. I was not involved in the patient's management. Gem Kendall NP Apr 02, 2020 08:04
== END 2020-03-31 13:54 | DRG 481 ==
LOC: EDBD 11:30 → EMR 12:10 → 3E 14:19 → EDBEDREQ 14:59 → 4E 03-27 16:00
PROC: 0QS734Z Reposition Left Upper Femur with Internal Fixation Device, Percutaneous Approach (ICD-10-PCS; 2020-03-27)
PROC: 30233N1 Transfusion of Nonautologous Red Blood Cells into Peripheral Vein, Percutaneous Approach (ICD-10-PCS; principal; 2020-03-30)
DX: S72.002A Fracture of unspecified part of neck of left femur, initial encounter for closed fracture (principal); K50.90 Crohn's disease, unspecified, without complications; W19.XXXA Unspecified fall, initial encounter; N18.9 Chronic kidney disease, unspecified; N40.0 Benign prostatic hyperplasia without lower urinary tract symptoms; K29.70 Gastritis, unspecified, without bleeding; F41.9 Anxiety disorder, unspecified; F20.9 Schizophrenia, unspecified; G20 Parkinson's disease; F02.80 Dementia in other diseases classified elsewhere, unspecified severity, without behavioral disturbance, psychotic disturbance, mood disturbance, and anxiety; R56.9 Unspecified convulsions; D64.9 Anemia, unspecified; I10 Essential (primary) hypertension
CPT/HCPCS: 36415; 71045; 73502; 76000; 80048; 80053; 84484; 85007; 85025; 85610; 85730; 86850; 86900; 86901; 86920; 87081; 93005; 93306; 94003; 94150; 99285; J7030; U0002